=== PATIENT | male | born 1975 | race Two or more races ===

== ENCOUNTER 2020-02-29 01:13 | Inpatient (IN) | payer MEDICAID, OTHER ==
[~2020-02-29] VITALS: Ht 170.2 cm; Wt 86.2 kg
[2020-02-29] MEDS ORDERED: DEXAMETHASONE 4MG/ML 1ML VIAL IV ONE (01:30)
[2020-02-29 02:03] LABS: BASOPHILS % 0.2 % (0.0-2.0); HEMATOCRIT. 41.6 % (42.0-52.0); HEMOGLOBIN. 13.9 g/dL (14.0-18.0); LYMPHOCYTES % 8.4 % (20.0-50.0); MEAN CORPUSCULAR HEMOGLOBIN 25.6 pg (28.0-32.0); MEAN CORPUSCULAR VOLUME 76.5 fL (80.0-94.0); MEAN PLATELET VOLUME 7.3 fl (7.4-10.4); MONOCYTES % 2.9 % (2.0-8.0); NEUTROPHILS % 88.5 % (40.0-76.0); PLATELET 330 x1000/uL (130-400); RED BLOOD CELL COUNT 5.43 mill/uL (4.7-6.1); RED CELL DISTRIBUTION WIDTH 14.6 % (11.6-14.6)
[2020-02-29 02:04] LABS: CHLORIDE 106 mEq/L (98-107)
[2020-02-29 02:10] LABS: ETHANOL BLOOD < 10 mg/dL
[2020-02-29] MEDS ORDERED: AZITHROMYCIN 500 MG in DEXT 5% WATER 250 ML IV NR (02:30)
[2020-02-29] MEDS ORDERED: SODIUM CHLORIDE 0.9% 1,000 ML IV NR (03:15)
[2020-02-29] MEDS ORDERED: ENOXAPARIN 100MG/ML SYR SUBCUT NR (03:30)
[2020-02-29] MEDS ORDERED: KETOROLAC 15MG/ML VIAL IV ONE (04:00)
[2020-02-29] MEDS ORDERED: CEFTRIAXONE 1 G PREMIX 50 ML IV NR (04:00)
[2020-02-29 06:24] LABS: *BARBITURATES SCREEN URINE NEGATIVE (NEGATIVE); *BENZODIAZEPINES SCREEN URINE NEGATIVE (NEGATIVE); *COCAINE SCREEN URINE NEGATIVE (NEGATIVE)
[2020-02-29 06:25] LABS: *AMPHETAMINES SCREEN URINE NEGATIVE (NEGATIVE); CANNABINOID URINE SCREEN NEGATIVE (NEGATIVE); METHADONE URINE SCREEN NEGATIVE (NEGATIVE); OPIATES URINE SCREEN NEGATIVE (NEGATIVE); PHENCYCLIDINE URINE SCREEN NEGATIVE (NEGATIVE)
[2020-02-29] MEDS ORDERED: NITROGLYCERIN 0.4MG TABLET SL SL PRN (07:15)
[2020-02-29] MEDS ORDERED: MAGNESIUM/ALUMINUM HYDROXIDE/SIMETHICONE 30ML UDC PO PRN (07:15)
[2020-02-29] MEDS ORDERED: ACETAMINOPHEN 325MG TABLET PO PRN (07:15)
[2020-02-29] MEDS ORDERED: CLONIDINE 0.1MG TABLET PO PRN (07:15)
[2020-02-29] MEDS ORDERED: DEXTROSE 50% WATER 50ML SYRINGE IV PRN (07:15)
[2020-02-29] MEDS ORDERED: ZOLPIDEM TARTRATE 5MG TABLET PO PRN ×2 (07:15)
[2020-02-29] MEDS ORDERED: ONDANSETRON HCL 4MG/2ML INJ IV PRN (07:15)
[2020-02-29] MEDS ORDERED: DOCUSATE SODIUM 100MG CAPSULE PO PRN (07:15)
[2020-02-29] MEDS ORDERED: KETOROLAC 15MG/ML VIAL IV PRN (07:15)
[2020-02-29 08:01] LABS: FOLIC ACID (FOLATE) SERUM 7.2 ng/mL (>5.38)
[2020-02-29] MEDS: INSULIN LISPRO 100 UNITS/ML SUBCUT SCH ×4 (08:20→21:00)
[2020-02-29] MEDS: FAMOTIDINE 20MG TABLET PO SCH ×2 (09:00→21:00)
[2020-02-29] MEDS: CHOLECALCIFEROL (D3) 1000 UNIT TABLET PO SCH (09:00)
[2020-02-29] MEDS: BLOOD SUGAR DIAGNOSTIC STRIP TEST SCH ×4 (09:00→21:00)
[2020-02-29] MEDS: DEXAMETHASONE 10 MG/ML VIAL IV SCH (09:00)
[2020-02-29] MEDS: ZINC SULFATE 220 MG ( 50 ) CAPSULE PO SCH (09:00)
[2020-02-29] MEDS: ASCORBIC ACID 500 MG TABLET PO SCH ×2 (09:00→21:00)
[2020-02-29] MEDS ORDERED: INSULIN GLARGINE UD 100 UNITS/ML SYR SUBCUT SCH (10:00)
[2020-02-29 12:24] LABS: BG BASE EXCESS -3.3 mmol/L (-2.0-2.0); BG DEOXYHEMOGLOBIN 6.1 % (0.0-5.0); BG FRACTION INSPIRED OXYGEN 100; BG HCO3 ACT 21.2 mmol/L (22.0-26.0); BG METHEMOGLOBIN 0.1 % (0.0-1.5); BG OXYGEN SATURATION 93.8 % (92.0-98.5); BG OXYHEMOGLOBIN 92.8 % (94.0-97.0); BG PCO2 36.7 mmHg (35.0-45.0); BG PO2 71.5 mmHg (75.0-100.0); BG SAMPLE SITE RIGHT RADIAL; BG TOTAL HEMOGLOBIN 14.9 g/dL (12.0-18.0); BG VENT MODE MASK - NRB
[2020-02-29] MEDS: ENOXAPARIN 30MG/0.3ML SYR SUBCUT SCH (21:00)
[2020-02-29] MEDS: GUAIFENESIN 200MG/10ML SUGAR FREE UDC PO PRN (21:40)
[2020-02-29 23:34] LABS: CREATINE KINASE 65 IU/L (39-308)
[2020-02-29 23:35] LABS: CREATINE KINASE MB FRACTION 1.1 ng/mL (0.5-3.6)
[2020-03-01] MEDS ORDERED: AZITHROMYCIN 500 MG in DEXT 5% WATER 250 ML IV SCH (02:00)
[2020-03-01 03:15] VITALS: BP 141/74
[2020-03-01 04:00] VITALS: BP 134/67
[2020-03-01] MEDS ORDERED: CEFTRIAXONE 1 G PREMIX 50 ML IV SCH (04:00)
[2020-03-01] MEDS: BLOOD SUGAR DIAGNOSTIC STRIP TEST SCH ×4 (06:40→20:25)
[2020-03-01 08:00] VITALS: BP 121/75
[2020-03-01] MEDS: DEXAMETHASONE 10 MG/ML VIAL IV SCH (08:02)
[2020-03-01] MEDS: FAMOTIDINE 20MG TABLET PO SCH ×2 (08:02→20:24)
[2020-03-01] MEDS: INSULIN LISPRO 100 UNITS/ML SUBCUT SCH ×4 (08:02→21:17)
[2020-03-01] MEDS: ZINC SULFATE 220 MG ( 50 ) CAPSULE PO SCH (08:02)
[2020-03-01] MEDS: ENOXAPARIN 30MG/0.3ML SYR SUBCUT SCH ×2 (08:02→20:25)
[2020-03-01] MEDS: ASCORBIC ACID 500 MG TABLET PO SCH ×2 (08:02→20:25)
[2020-03-01] MEDS: CHOLECALCIFEROL (D3) 1000 UNIT TABLET PO SCH (08:02)
[2020-03-01 08:20] LABS: HEMATOCRIT. 40.7 % (42.0-52.0); HEMOGLOBIN. 13.8 g/dL (14.0-18.0); MEAN CORPUSCULAR HEMOGLOBIN 25.8 pg (28.0-32.0); MEAN CORPUSCULAR VOLUME 76.2 fL (80.0-94.0); MEAN PLATELET VOLUME 7.6 fl (7.4-10.4); PLATELET 357 x1000/uL (130-400); RED BLOOD CELL COUNT 5.34 mill/uL (4.7-6.1); RED CELL DISTRIBUTION WIDTH 14.5 % (11.6-14.6)
[2020-03-01 09:03] LABS: CHLORIDE 107 mEq/L (98-107)
[2020-03-01 09:09] LABS: PHOSPHORUS 3.2 mg/dL (2.5-4.9)
[2020-03-01] MEDS ORDERED: FUROSEMIDE 40MG/4ML VIAL IVP NR (11:00)
[2020-03-01 11:29] LABS: NUCLEATED RED BLOOD CELLS 1 /100 WBC; PLATELET ESTIMATE NORMAL
[2020-03-01 12:00] VITALS: BP 144/87
[2020-03-01] MEDS: AZITHROMYCIN 500 MG in DEXT 5% WATER 250 ML IV SCH (12:37)
[2020-03-01] MEDS: CEFTRIAXONE 1,000 MG in DEXTROSE 5% WATER 50 ML IV SCH (12:37)
[2020-03-01] MEDS: INSULIN GLARGINE UD 100 UNITS/ML SYR SUBCUT SCH (12:42)
[2020-03-01 16:00] VITALS: BP 112/67
[2020-03-01 20:00] VITALS: BP 127/80
[2020-03-02] VITALS: BP 109/58
[2020-03-02] MEDS: ACETAMINOPHEN 325MG TABLET PO PRN ×2 (02:30→23:54)
[2020-03-02 04:00] VITALS: BP 115/87
[2020-03-02] MEDS: BLOOD SUGAR DIAGNOSTIC STRIP TEST SCH ×4 (07:10→20:56)
[2020-03-02] MEDS: INSULIN LISPRO 100 UNITS/ML SUBCUT SCH ×4 (07:10→23:55)
[2020-03-02 08:00] VITALS: BP 125/79
[2020-03-02] MEDS: DEXAMETHASONE 10 MG/ML VIAL IV SCH (09:00)
[2020-03-02] MEDS: CEFTRIAXONE 1,000 MG in DEXTROSE 5% WATER 50 ML IV SCH (10:01)
[2020-03-02] MEDS: AZITHROMYCIN 500 MG in DEXT 5% WATER 250 ML IV SCH (10:02)
[2020-03-02] MEDS: ZINC SULFATE 220 MG ( 50 ) CAPSULE PO SCH (10:03)
[2020-03-02] MEDS: ASCORBIC ACID 500 MG TABLET PO SCH ×2 (10:03→23:54)
[2020-03-02] MEDS: FAMOTIDINE 20MG TABLET PO SCH ×2 (10:03→23:54)
[2020-03-02] MEDS: CHOLECALCIFEROL (D3) 1000 UNIT TABLET PO SCH (10:04)
[2020-03-02] MEDS: ENOXAPARIN 30MG/0.3ML SYR SUBCUT SCH ×2 (10:04→23:54)
[2020-03-02] MEDS: INSULIN GLARGINE UD 100 UNITS/ML SYR SUBCUT SCH (10:28)
[2020-03-02 12:00] VITALS: BP 108/65
[2020-03-02 16:00] VITALS: BP 123/63
[2020-03-02 20:00] VITALS: BP 93/75
[2020-03-03] VITALS: BP 105/66
[2020-03-03] MEDS: GUAIFENESIN 200MG/10ML SUGAR FREE UDC PO PRN (00:10)
[2020-03-03 04:00] VITALS: BP 113/62
[2020-03-03] MEDS: INSULIN LISPRO 100 UNITS/ML SUBCUT SCH ×4 (07:10→22:13)
[2020-03-03] MEDS: BLOOD SUGAR DIAGNOSTIC STRIP TEST SCH ×4 (07:37→21:00)
[2020-03-03] MEDS: CEFTRIAXONE 1,000 MG in DEXTROSE 5% WATER 50 ML IV SCH (08:45)
[2020-03-03] MEDS: ASCORBIC ACID 500 MG TABLET PO SCH ×2 (08:45→22:10)
[2020-03-03] MEDS: AZITHROMYCIN 500 MG in DEXT 5% WATER 250 ML IV SCH (08:45)
[2020-03-03] MEDS: CHOLECALCIFEROL (D3) 1000 UNIT TABLET PO SCH (08:45)
[2020-03-03] MEDS: ZINC SULFATE 220 MG ( 50 ) CAPSULE PO SCH (08:45)
[2020-03-03] MEDS: FAMOTIDINE 20MG TABLET PO SCH ×2 (08:45→22:10)
[2020-03-03] MEDS: DEXAMETHASONE 10 MG/ML VIAL IV SCH (08:46)
[2020-03-03] MEDS: ENOXAPARIN 30MG/0.3ML SYR SUBCUT SCH ×2 (08:46→22:11)
[2020-03-03] MEDS: INSULIN GLARGINE UD 100 UNITS/ML SYR SUBCUT SCH (10:00)
[2020-03-03 20:00] VITALS: BP 126/71
[2020-03-03] MEDS: ALBUTEROL 6.7GM HFA INHALER ORI SCH (21:00)
[2020-03-04] VITALS: BP 108/62
[2020-03-04] MEDS: ALBUTEROL 6.7GM HFA INHALER ORI SCH ×4 (03:51→21:04)
[2020-03-04 04:00] VITALS: BP 95/47
[2020-03-04] MEDS: BLOOD SUGAR DIAGNOSTIC STRIP TEST SCH ×4 (06:31→21:04)
[2020-03-04] MEDS: INSULIN LISPRO 100 UNITS/ML SUBCUT SCH ×4 (06:31→23:52)
[2020-03-04 08:00] VITALS: BP 102/51
[2020-03-04] MEDS: CEFTRIAXONE 1,000 MG in DEXTROSE 5% WATER 50 ML IV SCH (08:43)
[2020-03-04] MEDS: ZINC SULFATE 220 MG ( 50 ) CAPSULE PO SCH (08:44)
[2020-03-04] MEDS: CHOLECALCIFEROL (D3) 1000 UNIT TABLET PO SCH (08:44)
[2020-03-04] MEDS: FAMOTIDINE 20MG TABLET PO SCH ×2 (08:44→21:03)
[2020-03-04] MEDS: AZITHROMYCIN 500 MG in DEXT 5% WATER 250 ML IV SCH (08:44)
[2020-03-04] MEDS: DEXAMETHASONE 10 MG/ML VIAL IV SCH (08:44)
[2020-03-04] MEDS: ASCORBIC ACID 500 MG TABLET PO SCH ×2 (08:44→21:03)
[2020-03-04] MEDS: ENOXAPARIN 30MG/0.3ML SYR SUBCUT SCH ×2 (08:52→21:02)
[2020-03-04] MEDS: ALBUTEROL 6.7GM HFA INHALER ORI PRN (08:52)
[2020-03-04] MEDS: INSULIN GLARGINE UD 100 UNITS/ML SYR SUBCUT SCH (10:41)
[2020-03-04 12:00] VITALS: BP 120/63
[2020-03-04 16:00] VITALS: BP 115/61
[2020-03-04 20:00] VITALS: BP 137/66
[2020-03-05] VITALS: BP 126/61
[2020-03-05] MEDS: ALBUTEROL 6.7GM HFA INHALER ORI SCH ×4 (03:03→21:00)
[2020-03-05 04:00] VITALS: BP 99/63
[2020-03-05] MEDS: BLOOD SUGAR DIAGNOSTIC STRIP TEST SCH ×4 (06:56→20:58)
[2020-03-05 08:00] VITALS: BP 116/61
[2020-03-05] MEDS: CEFTRIAXONE 1,000 MG in DEXTROSE 5% WATER 50 ML IV SCH (08:25)
[2020-03-05] MEDS: INSULIN LISPRO 100 UNITS/ML SUBCUT SCH ×4 (08:25→20:58)
[2020-03-05] MEDS: AZITHROMYCIN 500 MG in DEXT 5% WATER 250 ML IV SCH (08:27)
[2020-03-05] MEDS: ASCORBIC ACID 500 MG TABLET PO SCH ×2 (08:27→20:58)
[2020-03-05] MEDS: FAMOTIDINE 20MG TABLET PO SCH ×2 (08:27→20:58)
[2020-03-05] MEDS: CHOLECALCIFEROL (D3) 1000 UNIT TABLET PO SCH (08:27)
[2020-03-05] MEDS: ZINC SULFATE 220 MG ( 50 ) CAPSULE PO SCH (08:27)
[2020-03-05] MEDS: ENOXAPARIN 30MG/0.3ML SYR SUBCUT SCH ×2 (08:28→20:59)
[2020-03-05] MEDS: DEXAMETHASONE 10 MG/ML VIAL IV SCH (08:28)
[2020-03-05] MEDS: INSULIN GLARGINE UD 100 UNITS/ML SYR SUBCUT SCH (09:27)
[2020-03-05 12:00] VITALS: BP 113/54
[2020-03-05 16:00] VITALS: BP 114/65
[2020-03-05 20:00] VITALS: BP 109/61
[2020-03-06 00:48] VITALS: BP 98/55
[2020-03-06 04:00] VITALS: BP 93/36
[2020-03-06] MEDS: BLOOD SUGAR DIAGNOSTIC STRIP TEST SCH ×4 (06:02→21:48)
[2020-03-06] MEDS: ALBUTEROL 6.7GM HFA INHALER ORI SCH ×4 (06:03→21:49)
[2020-03-06] MEDS: GUAIFENESIN 200MG/10ML SUGAR FREE UDC PO PRN ×2 (06:48→21:47)
[2020-03-06] MEDS: INSULIN LISPRO 100 UNITS/ML SUBCUT SCH ×4 (07:10→21:48)
[2020-03-06 08:00] VITALS: BP 118/60
[2020-03-06] MEDS: CHOLECALCIFEROL (D3) 1000 UNIT TABLET PO SCH (08:00)
[2020-03-06] MEDS: FAMOTIDINE 20MG TABLET PO SCH ×2 (08:00→21:47)
[2020-03-06] MEDS: ASCORBIC ACID 500 MG TABLET PO SCH ×2 (08:00→21:47)
[2020-03-06] MEDS: ZINC SULFATE 220 MG ( 50 ) CAPSULE PO SCH (08:00)
[2020-03-06] MEDS: DEXAMETHASONE 10 MG/ML VIAL IV SCH (08:00)
[2020-03-06] MEDS: ENOXAPARIN 30MG/0.3ML SYR SUBCUT SCH ×2 (08:01→21:48)
[2020-03-06 12:00] VITALS: BP 110/58
[2020-03-06 16:00] VITALS: BP 104/62
[2020-03-06 20:00] VITALS: BP 113/61
[2020-03-07] VITALS: BP 117/62
[2020-03-07] MEDS: ALBUTEROL 6.7GM HFA INHALER ORI SCH ×4 (03:13→21:59)
[2020-03-07 04:00] VITALS: BP 129/67
[2020-03-07] MEDS: BLOOD SUGAR DIAGNOSTIC STRIP TEST SCH ×4 (06:46→21:05)
[2020-03-07] MEDS: INSULIN LISPRO 100 UNITS/ML SUBCUT SCH ×4 (07:10→21:00)
[2020-03-07 08:00] VITALS: BP 114/64
[2020-03-07] MEDS: ZINC SULFATE 220 MG ( 50 ) CAPSULE PO SCH (08:34)
[2020-03-07] MEDS: CHOLECALCIFEROL (D3) 1000 UNIT TABLET PO SCH (08:34)
[2020-03-07] MEDS: ASCORBIC ACID 500 MG TABLET PO SCH ×2 (08:34→21:03)
[2020-03-07] MEDS: FAMOTIDINE 20MG TABLET PO SCH ×2 (08:34→21:03)
[2020-03-07] MEDS: DEXAMETHASONE 10 MG/ML VIAL IV SCH (08:38)
[2020-03-07] MEDS: ENOXAPARIN 30MG/0.3ML SYR SUBCUT SCH ×2 (08:39→21:05)
[2020-03-07 12:00] VITALS: BP 123/66
[2020-03-07] MEDS: INSULIN GLARGINE UD 100 UNITS/ML SYR SUBCUT SCH (12:06)
[2020-03-07 16:00] VITALS: BP 113/75
[2020-03-07 20:00] VITALS: BP 99/57
[2020-03-07] MEDS: GUAIFENESIN 200MG/10ML SUGAR FREE UDC PO PRN (22:08)
[2020-03-08] VITALS: BP 100/62
[2020-03-08] MEDS: ALBUTEROL 6.7GM HFA INHALER ORI SCH ×3 (02:52→13:10)
[2020-03-08 04:00] VITALS: BP 98/60
[2020-03-08 06:12] LABS: HEMATOCRIT. 42.1 % (42.0-52.0); HEMOGLOBIN. 14.1 g/dL (14.0-18.0); MEAN CORPUSCULAR HEMOGLOBIN 25.8 pg (28.0-32.0); MEAN CORPUSCULAR VOLUME 77.1 fL (80.0-94.0); MEAN PLATELET VOLUME 7.9 fl (7.4-10.4); PLATELET 275 x1000/uL (130-400); RED BLOOD CELL COUNT 5.46 mill/uL (4.7-6.1); RED CELL DISTRIBUTION WIDTH 14.7 % (11.6-14.6)
[2020-03-08] MEDS: BLOOD SUGAR DIAGNOSTIC STRIP TEST SCH ×4 (06:29→21:00)
[2020-03-08 06:53] LABS: CHLORIDE 105 mEq/L (98-107)
[2020-03-08] MEDS: INSULIN LISPRO 100 UNITS/ML SUBCUT SCH ×4 (07:10→21:00)
[2020-03-08] MEDS: ASCORBIC ACID 500 MG TABLET PO SCH (07:50)
[2020-03-08] MEDS: ZINC SULFATE 220 MG ( 50 ) CAPSULE PO SCH (07:50)
[2020-03-08] MEDS: FAMOTIDINE 20MG TABLET PO SCH ×2 (07:50→21:00)
[2020-03-08] MEDS: ENOXAPARIN 30MG/0.3ML SYR SUBCUT SCH (07:51)
[2020-03-08] MEDS: CHOLECALCIFEROL (D3) 1000 UNIT TABLET PO SCH (07:51)
[2020-03-08] MEDS: DEXAMETHASONE 10 MG/ML VIAL IV SCH (07:51)
[2020-03-08 08:00] VITALS: BP 134/64
[2020-03-08] MEDS: INSULIN GLARGINE UD 100 UNITS/ML SYR SUBCUT SCH (11:05)
[2020-03-08 11:35] VITALS: BP 136/62
[2020-03-08 14:09] LABS: PLATELET ESTIMATE NORMAL
[2020-03-08 15:57] VITALS: BP 126/60
[2020-03-08 20:00] VITALS: BP 117/74
[2020-03-09] VITALS: BP 149/70
[2020-03-09] MEDS: ASCORBIC ACID 500 MG TABLET PO SCH ×3 (00:32→20:10)
[2020-03-09] MEDS: ENOXAPARIN 30MG/0.3ML SYR SUBCUT SCH ×3 (00:32→20:11)
[2020-03-09] MEDS: ALBUTEROL 6.7GM HFA INHALER ORI SCH ×5 (03:00→17:11)
[2020-03-09 04:00] VITALS: BP 106/49
[2020-03-09] MEDS: BLOOD SUGAR DIAGNOSTIC STRIP TEST SCH ×4 (06:40→20:11)
[2020-03-09] MEDS: INSULIN LISPRO 100 UNITS/ML SUBCUT SCH ×4 (07:10→21:00)
[2020-03-09 08:00] VITALS: BP 107/68
[2020-03-09] MEDS: DEXAMETHASONE 10 MG/ML VIAL IV SCH (09:04)
[2020-03-09] MEDS: CHOLECALCIFEROL (D3) 1000 UNIT TABLET PO SCH (09:05)
[2020-03-09] MEDS: FAMOTIDINE 20MG TABLET PO SCH ×2 (09:05→20:10)
[2020-03-09] MEDS: ZINC SULFATE 220 MG ( 50 ) CAPSULE PO SCH (09:05)
[2020-03-09] MEDS: INSULIN GLARGINE UD 100 UNITS/ML SYR SUBCUT SCH (09:38)
[2020-03-09 12:00] VITALS: BP 113/63
[2020-03-09 16:00] VITALS: BP 146/83
[2020-03-09] MEDS: ALBUTEROL 6.7GM HFA INHALER ORI PRN (17:10)
[2020-03-09 20:00] VITALS: BP 143/93
[2020-03-10] VITALS: BP 142/68
[2020-03-10 04:00] VITALS: BP 160/76
[2020-03-10] MEDS: BLOOD SUGAR DIAGNOSTIC STRIP TEST SCH ×4 (06:40→21:07)
[2020-03-10] MEDS: INSULIN LISPRO 100 UNITS/ML SUBCUT SCH ×4 (07:10→21:19)
[2020-03-10 08:00] VITALS: BP 138/63
[2020-03-10] MEDS: ALBUTEROL 6.7GM HFA INHALER ORI SCH ×4 (09:19→21:16)
[2020-03-10] MEDS: FAMOTIDINE 20MG TABLET PO SCH ×2 (09:21→21:17)
[2020-03-10] MEDS: ENOXAPARIN 30MG/0.3ML SYR SUBCUT SCH ×2 (09:21→21:16)
[2020-03-10] MEDS: ZINC SULFATE 220 MG ( 50 ) CAPSULE PO SCH (09:21)
[2020-03-10] MEDS: CHOLECALCIFEROL (D3) 1000 UNIT TABLET PO SCH (09:21)
[2020-03-10] MEDS: ASCORBIC ACID 500 MG TABLET PO SCH ×2 (09:21→21:16)
[2020-03-10] MEDS: DEXAMETHASONE 10 MG/ML VIAL IV SCH (09:21)
[2020-03-10] MEDS: INSULIN GLARGINE UD 100 UNITS/ML SYR SUBCUT SCH (09:26)
[2020-03-10 12:00] VITALS: BP 128/83
[2020-03-10 16:00] VITALS: BP 137/93
[2020-03-10 20:00] VITALS: BP 132/85
[2020-03-10] MEDS: GUAIFENESIN 200MG/10ML SUGAR FREE UDC PO PRN (21:16)
[2020-03-11] VITALS: BP 125/87
[2020-03-11] MEDS: ALBUTEROL 6.7GM HFA INHALER ORI SCH ×3 (01:20→22:00)
[2020-03-11 04:00] VITALS: BP 116/81
[2020-03-11] MEDS: BLOOD SUGAR DIAGNOSTIC STRIP TEST SCH ×4 (06:01→22:01)
[2020-03-11] MEDS: INSULIN LISPRO 100 UNITS/ML SUBCUT SCH ×4 (06:13→22:26)
[2020-03-11 08:00] VITALS: BP 128/72
[2020-03-11] MEDS: FAMOTIDINE 20MG TABLET PO SCH ×2 (09:11→22:00)
[2020-03-11] MEDS: CHOLECALCIFEROL (D3) 1000 UNIT TABLET PO SCH (09:11)
[2020-03-11] MEDS: ENOXAPARIN 30MG/0.3ML SYR SUBCUT SCH ×2 (09:11→22:05)
[2020-03-11] MEDS: ZINC SULFATE 220 MG ( 50 ) CAPSULE PO SCH (09:11)
[2020-03-11] MEDS: ASCORBIC ACID 500 MG TABLET PO SCH ×2 (09:11→22:00)
[2020-03-11] MEDS: INSULIN GLARGINE UD 100 UNITS/ML SYR SUBCUT SCH (10:22)
[2020-03-11 12:00] VITALS: BP 141/82
[2020-03-11 16:00] VITALS: BP 157/85
[2020-03-11 20:00] VITALS: BP 127/92
[2020-03-12] VITALS: BP 132/82
[2020-03-12] MEDS: ALBUTEROL 6.7GM HFA INHALER ORI SCH ×5 (02:14→21:52)
[2020-03-12 04:00] VITALS: BP 142/85
[2020-03-12] MEDS: BLOOD SUGAR DIAGNOSTIC STRIP TEST SCH ×4 (06:00→21:52)
[2020-03-12] MEDS: INSULIN LISPRO 100 UNITS/ML SUBCUT SCH ×4 (06:00→22:00)
[2020-03-12 08:00] VITALS: BP 128/78
[2020-03-12] MEDS: ZINC SULFATE 220 MG ( 50 ) CAPSULE PO SCH (09:18)
[2020-03-12] MEDS: ENOXAPARIN 30MG/0.3ML SYR SUBCUT SCH ×2 (09:18→22:00)
[2020-03-12] MEDS: ASCORBIC ACID 500 MG TABLET PO SCH ×2 (09:18→21:59)
[2020-03-12] MEDS: CHOLECALCIFEROL (D3) 1000 UNIT TABLET PO SCH (09:18)
[2020-03-12] MEDS: FAMOTIDINE 20MG TABLET PO SCH ×2 (09:18→21:59)
[2020-03-12] MEDS: INSULIN GLARGINE UD 100 UNITS/ML SYR SUBCUT SCH (10:37)
[2020-03-12 12:00] VITALS: BP 130/79
[2020-03-12 12:55] LABS: BG BASE EXCESS 1.6 mmol/L (-2.0-2.0); BG CARBOXYHEMOGLOBIN 0.5 % (0.5-1.5); BG HCO3 ACT 27.4 mmol/L (22.0-26.0); BG METHEMOGLOBIN 0.2 % (0.0-1.5); BG OXYGEN SATURATION 89.9 % (92.0-98.5); BG OXYHEMOGLOBIN 89.3 % (94.0-97.0); BG PCO2 47.2 mmHg (35.0-45.0); BG PH 7.382 (7.350-7.450); BG PO2 58.7 mmHg (75.0-100.0); BG SAMPLE SITE RIGHT RADIAL; BG TOTAL HEMOGLOBIN 16.2 g/dL (12.0-18.0); BG VENT MODE MASK - CPAP
[2020-03-12 16:00] VITALS: BP 154/96
[2020-03-12 20:00] VITALS: BP 148/95
[2020-03-13] VITALS: BP 135/79
[2020-03-13 04:00] VITALS: BP 146/84
[2020-03-13] MEDS: ALBUTEROL 6.7GM HFA INHALER ORI SCH ×4 (04:23→21:33)
[2020-03-13] MEDS: BLOOD SUGAR DIAGNOSTIC STRIP TEST SCH ×3 (06:16→21:33)
[2020-03-13 08:00] VITALS: BP 138/81
[2020-03-13] MEDS: ASCORBIC ACID 500 MG TABLET PO SCH ×2 (09:27→21:34)
[2020-03-13] MEDS: ENOXAPARIN 30MG/0.3ML SYR SUBCUT SCH ×2 (09:27→21:36)
[2020-03-13] MEDS: FAMOTIDINE 20MG TABLET PO SCH ×2 (09:27→21:34)
[2020-03-13] MEDS: CHOLECALCIFEROL (D3) 1000 UNIT TABLET PO SCH (09:27)
[2020-03-13] MEDS: ZINC SULFATE 220 MG ( 50 ) CAPSULE PO SCH (09:27)
[2020-03-13] MEDS: INSULIN LISPRO 100 UNITS/ML SUBCUT SCH ×3 (09:39→22:20)
[2020-03-13] MEDS: INSULIN GLARGINE UD 100 UNITS/ML SYR SUBCUT SCH (09:58)
[2020-03-13 12:00] VITALS: BP 130/86
[2020-03-13 16:00] VITALS: BP 129/82
[2020-03-13 20:00] VITALS: BP 151/68
[2020-03-14] VITALS: BP 134/75
[2020-03-14 04:00] VITALS: BP 163/85
[2020-03-14] MEDS: ALBUTEROL 6.7GM HFA INHALER ORI SCH ×4 (04:20→21:59)
[2020-03-14] MEDS: INSULIN LISPRO 100 UNITS/ML SUBCUT SCH ×4 (06:16→22:47)
[2020-03-14] MEDS: BLOOD SUGAR DIAGNOSTIC STRIP TEST SCH ×4 (06:16→21:59)
[2020-03-14 08:14] VITALS: BP 136/80
[2020-03-14] MEDS: METHYLPREDNISOLONE SOD SUCC 40 MG/ML VIAL IV SCH ×3 (10:35→21:59)
[2020-03-14] MEDS: ENOXAPARIN 30MG/0.3ML SYR SUBCUT SCH ×2 (10:35→22:00)
[2020-03-14] MEDS: ASCORBIC ACID 500 MG TABLET PO SCH ×2 (10:35→21:59)
[2020-03-14] MEDS: FAMOTIDINE 20MG TABLET PO SCH ×2 (10:35→21:59)
[2020-03-14] MEDS: CHOLECALCIFEROL (D3) 1000 UNIT TABLET PO SCH (10:35)
[2020-03-14] MEDS: ZINC SULFATE 220 MG ( 50 ) CAPSULE PO SCH (10:35)
[2020-03-14] MEDS: INSULIN GLARGINE UD 100 UNITS/ML SYR SUBCUT SCH (10:37)
[2020-03-14 12:00] VITALS: BP 142/86
[2020-03-14 16:00] VITALS: BP 147/97
[2020-03-14 20:00] VITALS: BP 178/90
[2020-03-15] VITALS: BP 183/92
[2020-03-15] MEDS: ACETAMINOPHEN 325MG TABLET PO PRN (02:08)
[2020-03-15] MEDS: ALBUTEROL 6.7GM HFA INHALER ORI SCH ×4 (03:00→09:40)
[2020-03-15 04:00] VITALS: BP 113/68
[2020-03-15] MEDS: BLOOD SUGAR DIAGNOSTIC STRIP TEST SCH ×4 (06:26→21:00)
[2020-03-15] MEDS: METHYLPREDNISOLONE SOD SUCC 40 MG/ML VIAL IV SCH ×3 (06:40→22:27)
[2020-03-15] MEDS: INSULIN LISPRO 100 UNITS/ML SUBCUT SCH ×4 (07:10→23:19)
[2020-03-15 08:00] VITALS: BP 141/92
[2020-03-15] MEDS: ASCORBIC ACID 500 MG TABLET PO SCH ×2 (08:30→22:27)
[2020-03-15] MEDS: FAMOTIDINE 20MG TABLET PO SCH ×2 (08:30→23:18)
[2020-03-15] MEDS: CHOLECALCIFEROL (D3) 1000 UNIT TABLET PO SCH (08:30)
[2020-03-15] MEDS: ZINC SULFATE 220 MG ( 50 ) CAPSULE PO SCH (08:30)
[2020-03-15] MEDS: ENOXAPARIN 30MG/0.3ML SYR SUBCUT SCH ×2 (08:31→23:18)
[2020-03-15] MEDS: INSULIN GLARGINE UD 100 UNITS/ML SYR SUBCUT SCH (10:27)
[2020-03-15 12:00] VITALS: BP 147/95
[2020-03-15] MEDS: ALBUTEROL 6.7GM HFA INHALER ORI PRN (14:06)
[2020-03-15 16:00] VITALS: BP 138/90
[2020-03-15] MEDS: GUAIFENESIN 200MG/10ML SUGAR FREE UDC PO PRN ×2 (16:37→23:18)
[2020-03-15 20:00] VITALS: BP 144/80
[2020-03-16 00:01] VITALS: BP 130/70
[2020-03-16 04:00] VITALS: BP 129/72
[2020-03-16] MEDS: METHYLPREDNISOLONE SOD SUCC 40 MG/ML VIAL IV SCH ×3 (05:27→21:38)
[2020-03-16] MEDS: BLOOD SUGAR DIAGNOSTIC STRIP TEST SCH ×4 (05:28→21:38)
[2020-03-16] MEDS: ALBUTEROL 6.7GM HFA INHALER ORI SCH ×4 (05:28→21:37)
[2020-03-16] MEDS: INSULIN LISPRO 100 UNITS/ML SUBCUT SCH ×4 (07:10→21:38)
[2020-03-16 07:34] LABS: CHLORIDE 99 mEq/L (98-107)
[2020-03-16 07:37] LABS: HEMATOCRIT 44.3 % (42.0-52.0); HEMOGLOBIN 14.5 g/dL (14.0-18.0); MEAN CORPUSCULAR HEMOGLOBIN 25.8 pg (28.0-32.0); MEAN CORPUSCULAR VOLUME 78.9 fL (80.0-94.0); PLATELET 379 x1000/uL (130-400); RED BLOOD CELL COUNT 5.62 mill/uL (4.7-6.1); RED CELL DISTRIBUTION WIDTH 14.9 % (11.6-14.6)
[2020-03-16 08:00] VITALS: BP 131/83
[2020-03-16] MEDS: ZINC SULFATE 220 MG ( 50 ) CAPSULE PO SCH (09:05)
[2020-03-16] MEDS: ASCORBIC ACID 500 MG TABLET PO SCH ×2 (09:05→21:37)
[2020-03-16] MEDS: FAMOTIDINE 20MG TABLET PO SCH ×2 (09:05→21:37)
[2020-03-16] MEDS: CHOLECALCIFEROL (D3) 1000 UNIT TABLET PO SCH (09:06)
[2020-03-16] MEDS: ENOXAPARIN 30MG/0.3ML SYR SUBCUT SCH ×2 (09:06→21:37)
[2020-03-16] MEDS: INSULIN GLARGINE UD 100 UNITS/ML SYR SUBCUT SCH (10:21)
[2020-03-16 12:00] VITALS: BP 147/91
[2020-03-16 16:00] VITALS: BP 158/92
[2020-03-16 20:00] VITALS: BP 140/93
[2020-03-16] MEDS: GUAIFENESIN 200MG/10ML SUGAR FREE UDC PO PRN (22:45)
[2020-03-17] VITALS: BP 132/88
[2020-03-17 04:00] VITALS: BP 125/73
[2020-03-17] MEDS: ALBUTEROL 6.7GM HFA INHALER ORI SCH ×4 (04:16→17:16)
[2020-03-17] MEDS: METHYLPREDNISOLONE SOD SUCC 40 MG/ML VIAL IV SCH ×3 (05:27→21:51)
[2020-03-17] MEDS: INSULIN LISPRO 100 UNITS/ML SUBCUT SCH ×4 (05:53→22:12)
[2020-03-17] MEDS: BLOOD SUGAR DIAGNOSTIC STRIP TEST SCH ×4 (05:53→21:51)
[2020-03-17 08:00] VITALS: BP 130/72
[2020-03-17] MEDS: FAMOTIDINE 20MG TABLET PO SCH ×2 (08:24→21:50)
[2020-03-17] MEDS: ZINC SULFATE 220 MG ( 50 ) CAPSULE PO SCH (08:24)
[2020-03-17] MEDS: CHOLECALCIFEROL (D3) 1000 UNIT TABLET PO SCH (08:24)
[2020-03-17] MEDS: ASCORBIC ACID 500 MG TABLET PO SCH ×2 (08:24→21:51)
[2020-03-17] MEDS: ENOXAPARIN 30MG/0.3ML SYR SUBCUT SCH ×2 (08:25→21:51)
[2020-03-17] MEDS: INSULIN GLARGINE UD 100 UNITS/ML SYR SUBCUT SCH (10:20)
[2020-03-17 12:00] VITALS: BP 145/64
[2020-03-17 16:00] VITALS: BP 139/85
[2020-03-17 20:00] VITALS: BP 152/94
[2020-03-18] VITALS: BP 146/87
[2020-03-18] MEDS: ALBUTEROL 6.7GM HFA INHALER ORI SCH ×4 (03:52→21:39)
[2020-03-18 04:00] VITALS: BP 122/78
[2020-03-18] MEDS: INSULIN LISPRO 100 UNITS/ML SUBCUT SCH ×3 (06:10→17:31)
[2020-03-18] MEDS: BLOOD SUGAR DIAGNOSTIC STRIP TEST SCH ×4 (06:10→21:00)
[2020-03-18] MEDS: METHYLPREDNISOLONE SOD SUCC 40 MG/ML VIAL IV SCH ×2 (06:13→14:41)
[2020-03-18 08:00] VITALS: BP 158/88
[2020-03-18] MEDS: CHOLECALCIFEROL (D3) 1000 UNIT TABLET PO SCH (09:20)
[2020-03-18] MEDS: FAMOTIDINE 20MG TABLET PO SCH ×2 (09:20→21:21)
[2020-03-18] MEDS: ASCORBIC ACID 500 MG TABLET PO SCH ×2 (09:21→21:21)
[2020-03-18] MEDS: ZINC SULFATE 220 MG ( 50 ) CAPSULE PO SCH (09:21)
[2020-03-18] MEDS: ENOXAPARIN 30MG/0.3ML SYR SUBCUT SCH (09:22)
[2020-03-18] MEDS: INSULIN GLARGINE UD 100 UNITS/ML SYR SUBCUT SCH (10:46)
[2020-03-18 12:00] VITALS: BP 148/83
[2020-03-18 16:00] VITALS: BP 128/79
[2020-03-18] MEDS: GUAIFENESIN 200MG/10ML SUGAR FREE UDC PO PRN (17:44)
[2020-03-18 20:00] VITALS: BP 150/97
[2020-03-19] VITALS: BP 139/95
[2020-03-19] MEDS: METHYLPREDNISOLONE SOD SUCC 40 MG/ML VIAL IV SCH ×4 (01:38→22:03)
[2020-03-19] MEDS: INSULIN LISPRO 100 UNITS/ML SUBCUT SCH ×5 (01:39→22:05)
[2020-03-19] MEDS: ENOXAPARIN 30MG/0.3ML SYR SUBCUT SCH ×3 (01:41→22:03)
[2020-03-19] MEDS: ALBUTEROL 6.7GM HFA INHALER ORI SCH ×4 (03:01→21:08)
[2020-03-19 04:00] VITALS: BP 151/87
[2020-03-19] MEDS: BLOOD SUGAR DIAGNOSTIC STRIP TEST SCH ×4 (06:40→21:57)
[2020-03-19 08:00] VITALS: BP 123/90
[2020-03-19] MEDS: CHOLECALCIFEROL (D3) 1000 UNIT TABLET PO SCH (09:50)
[2020-03-19] MEDS: ASCORBIC ACID 500 MG TABLET PO SCH ×2 (09:50→22:04)
[2020-03-19] MEDS: ZINC SULFATE 220 MG ( 50 ) CAPSULE PO SCH (09:50)
[2020-03-19] MEDS: INSULIN GLARGINE UD 100 UNITS/ML SYR SUBCUT SCH (11:11)
[2020-03-19 12:00] VITALS: BP 152/95
[2020-03-19] MEDS: FAMOTIDINE 20MG TABLET PO SCH ×2 (12:25→22:04)
[2020-03-19 15:55] VITALS: BP 136/81
[2020-03-19 18:00] LABS: HEPATITIS B SURFACE ANTIGEN NEGATIVE
[2020-03-19 20:36] VITALS: BP 131/65
[2020-03-20] VITALS: BP 136/75
[2020-03-20] MEDS: ALBUTEROL 6.7GM HFA INHALER ORI SCH ×4 (03:10→22:03)
[2020-03-20 04:47] VITALS: BP 135/87
[2020-03-20] MEDS: METHYLPREDNISOLONE SOD SUCC 40 MG/ML VIAL IV SCH ×3 (05:20→23:02)
[2020-03-20] MEDS: BLOOD SUGAR DIAGNOSTIC STRIP TEST SCH ×4 (07:07→22:03)
[2020-03-20 07:55] VITALS: BP 135/86
[2020-03-20] MEDS: ASCORBIC ACID 500 MG TABLET PO SCH ×2 (08:15→22:55)
[2020-03-20] MEDS: CHOLECALCIFEROL (D3) 1000 UNIT TABLET PO SCH (08:15)
[2020-03-20] MEDS: FAMOTIDINE 20MG TABLET PO SCH ×2 (08:16→22:55)
[2020-03-20] MEDS: ZINC SULFATE 220 MG ( 50 ) CAPSULE PO SCH (08:16)
[2020-03-20] MEDS: ENOXAPARIN 30MG/0.3ML SYR SUBCUT SCH ×2 (08:16→22:56)
[2020-03-20] MEDS: INSULIN LISPRO 100 UNITS/ML SUBCUT SCH ×4 (08:17→22:57)
[2020-03-20 12:00] VITALS: BP 156/99
[2020-03-20] MEDS: INSULIN GLARGINE UD 100 UNITS/ML SYR SUBCUT SCH (12:42)
[2020-03-20] MEDS: GUAIFENESIN 200MG/10ML SUGAR FREE UDC PO PRN ×2 (13:30→23:08)
[2020-03-20 16:00] VITALS: BP 138/91
[2020-03-20 20:00] VITALS: BP 152/90
[2020-03-21] VITALS (7 sets, daily range): BP systolic 125–144; BP diastolic 79–94
[2020-03-21] MEDS: ALBUTEROL 6.7GM HFA INHALER ORI SCH ×4 (03:22→22:27)
[2020-03-21] MEDS: METHYLPREDNISOLONE SOD SUCC 40 MG/ML VIAL IV SCH ×2 (06:15→13:15)
[2020-03-21] MEDS: BLOOD SUGAR DIAGNOSTIC STRIP TEST SCH ×4 (06:15→22:27)
[2020-03-21] MEDS: ASCORBIC ACID 500 MG TABLET PO SCH ×2 (08:41→22:27)
[2020-03-21] MEDS: ZINC SULFATE 220 MG ( 50 ) CAPSULE PO SCH (08:41)
[2020-03-21] MEDS: FAMOTIDINE 20MG TABLET PO SCH ×2 (08:41→22:27)
[2020-03-21] MEDS: CHOLECALCIFEROL (D3) 1000 UNIT TABLET PO SCH (08:41)
[2020-03-21] MEDS: ENOXAPARIN 30MG/0.3ML SYR SUBCUT SCH ×2 (08:42→22:26)
[2020-03-21 10:11] LABS: BG BASE EXCESS 3.4 mmol/L (-2.0-2.0); BG CARBOXYHEMOGLOBIN 1.1 % (0.5-1.5); BG DEOXYHEMOGLOBIN 6.5 % (0.0-5.0); BG FRACTION INSPIRED OXYGEN 100; BG METHEMOGLOBIN 0.3 % (0.0-1.5); BG OXYGEN SATURATION 93.4 % (92.0-98.5); BG OXYHEMOGLOBIN 92.1 % (94.0-97.0); BG PCO2 47.3 mmHg (35.0-45.0); BG PH 7.406 (7.350-7.450); BG PO2 68.5 mmHg (75.0-100.0); BG SAMPLE SITE RIGHT RADIAL; BG TOTAL HEMOGLOBIN 16.4 g/dL (12.0-18.0); BG VENT MODE MASK - NRB
[2020-03-21] MEDS: INSULIN GLARGINE UD 100 UNITS/ML SYR SUBCUT SCH (10:21)
[2020-03-21] MEDS: INSULIN LISPRO 100 UNITS/ML SUBCUT SCH ×4 (10:21→22:28)
[2020-03-21] MEDS: PREDNISONE 20MG TABLET PO SCH (17:25)
[2020-03-21] MEDS: GUAIFENESIN 200MG/10ML SUGAR FREE UDC PO PRN (22:26)
[2020-03-22] MEDS: ALBUTEROL 6.7GM HFA INHALER ORI SCH ×4 (02:19→20:13)
[2020-03-22 04:00] VITALS: BP 129/88
[2020-03-22] MEDS: INSULIN LISPRO 100 UNITS/ML SUBCUT SCH ×4 (06:38→21:35)
[2020-03-22] MEDS: PREDNISONE 20MG TABLET PO SCH ×2 (06:38→17:11)
[2020-03-22] MEDS: BLOOD SUGAR DIAGNOSTIC STRIP TEST SCH ×4 (06:38→21:25)
[2020-03-22 08:00] VITALS: BP 141/94
[2020-03-22] MEDS: FAMOTIDINE 20MG TABLET PO SCH ×2 (08:52→21:34)
[2020-03-22] MEDS: CHOLECALCIFEROL (D3) 1000 UNIT TABLET PO SCH (08:52)
[2020-03-22] MEDS: ZINC SULFATE 220 MG ( 50 ) CAPSULE PO SCH (08:53)
[2020-03-22] MEDS: ASCORBIC ACID 500 MG TABLET PO SCH ×2 (08:53→21:34)
[2020-03-22] MEDS: ENOXAPARIN 30MG/0.3ML SYR SUBCUT SCH ×2 (08:54→21:35)
[2020-03-22] MEDS: INSULIN GLARGINE UD 100 UNITS/ML SYR SUBCUT SCH (09:01)
[2020-03-22] MEDS: GUAIFENESIN 200MG/10ML SUGAR FREE UDC PO PRN ×2 (10:11→21:41)
[2020-03-22 12:00] VITALS: BP 129/79
[2020-03-22 16:00] VITALS: BP 131/94
[2020-03-22 20:00] VITALS: BP 142/87
[2020-03-22] MEDS: ACETAMINOPHEN 325MG TABLET PO PRN (21:44)
[2020-03-23] VITALS: BP 132/81
[2020-03-23] MEDS: ALBUTEROL 6.7GM HFA INHALER ORI SCH ×4 (03:26→16:26)
[2020-03-23 04:00] VITALS: BP 119/84
[2020-03-23] MEDS: INSULIN LISPRO 100 UNITS/ML SUBCUT SCH ×4 (07:10→22:06)
[2020-03-23] MEDS: BLOOD SUGAR DIAGNOSTIC STRIP TEST SCH ×4 (07:12→21:00)
[2020-03-23 08:00] VITALS: BP 136/76
[2020-03-23 08:17] LABS: HEMOGLOBIN. 15.4 g/dL (14.0-18.0); MEAN CORPUSCULAR VOLUME 78.1 fL (80.0-94.0); MEAN PLATELET VOLUME 7.7 fl (7.4-10.4); PLATELET 271 x1000/uL (130-400); RED BLOOD CELL COUNT 6.14 mill/uL (4.7-6.1)
[2020-03-23 08:30] LABS: CHLORIDE 105 mEq/L (98-107)
[2020-03-23] MEDS: ASCORBIC ACID 500 MG TABLET PO SCH ×2 (08:38→22:05)
[2020-03-23] MEDS: FAMOTIDINE 20MG TABLET PO SCH ×2 (08:38→22:05)
[2020-03-23] MEDS: CHOLECALCIFEROL (D3) 1000 UNIT TABLET PO SCH (08:38)
[2020-03-23] MEDS: ZINC SULFATE 220 MG ( 50 ) CAPSULE PO SCH (08:38)
[2020-03-23] MEDS: PREDNISONE 20MG TABLET PO SCH ×2 (08:38→17:43)
[2020-03-23] MEDS: ENOXAPARIN 30MG/0.3ML SYR SUBCUT SCH ×2 (08:38→22:05)
[2020-03-23] MEDS: INSULIN GLARGINE UD 100 UNITS/ML SYR SUBCUT SCH (09:12)
[2020-03-23 12:00] VITALS: BP 134/89
[2020-03-23 16:00] VITALS: BP 133/85
[2020-03-23 20:41] VITALS: BP 145/88
[2020-03-23] MEDS: GUAIFENESIN 200MG/10ML SUGAR FREE UDC PO PRN (22:05)
[2020-03-23 23:27] LABS: PLATELET ESTIMATE NORMAL
[2020-03-24] VITALS: BP 153/99
[2020-03-24] MEDS: ALBUTEROL 6.7GM HFA INHALER ORI SCH ×4 (03:00→22:22)
[2020-03-24 04:00] VITALS: BP 118/79
[2020-03-24] MEDS: BLOOD SUGAR DIAGNOSTIC STRIP TEST SCH ×4 (06:45→21:00)
[2020-03-24] MEDS: PREDNISONE 20MG TABLET PO SCH ×2 (06:45→17:39)
[2020-03-24] MEDS: INSULIN LISPRO 100 UNITS/ML SUBCUT SCH ×4 (06:48→22:24)
[2020-03-24 08:00] VITALS: BP 120/90
[2020-03-24] MEDS: FAMOTIDINE 20MG TABLET PO SCH ×2 (08:55→22:22)
[2020-03-24] MEDS: ZINC SULFATE 220 MG ( 50 ) CAPSULE PO SCH (08:55)
[2020-03-24] MEDS: CHOLECALCIFEROL (D3) 1000 UNIT TABLET PO SCH (08:55)
[2020-03-24] MEDS: ASCORBIC ACID 500 MG TABLET PO SCH ×2 (09:00→22:22)
[2020-03-24] MEDS: ENOXAPARIN 30MG/0.3ML SYR SUBCUT SCH ×2 (09:08→22:26)
[2020-03-24] MEDS: INSULIN GLARGINE UD 100 UNITS/ML SYR SUBCUT SCH (09:08)
[2020-03-24 12:00] VITALS: BP 131/80
[2020-03-24] MEDS: GUAIFENESIN 200MG/10ML SUGAR FREE UDC PO PRN (13:09)
[2020-03-24 16:00] VITALS: BP 131/86
[2020-03-24 20:00] VITALS: BP 140/84
[2020-03-25] VITALS: BP 134/79
[2020-03-25] MEDS: ALBUTEROL 6.7GM HFA INHALER ORI SCH ×4 (05:03→20:33)
[2020-03-25] MEDS: BLOOD SUGAR DIAGNOSTIC STRIP TEST SCH ×4 (06:29→20:33)
[2020-03-25] MEDS: PREDNISONE 20MG TABLET PO SCH ×2 (06:33→17:25)
[2020-03-25] MEDS: INSULIN LISPRO 100 UNITS/ML SUBCUT SCH ×4 (07:10→20:46)
[2020-03-25 08:00] VITALS: BP 128/86
[2020-03-25] MEDS: ZINC SULFATE 220 MG ( 50 ) CAPSULE PO SCH (09:26)
[2020-03-25] MEDS: CHOLECALCIFEROL (D3) 1000 UNIT TABLET PO SCH (09:26)
[2020-03-25] MEDS: ENOXAPARIN 30MG/0.3ML SYR SUBCUT SCH ×2 (09:26→20:33)
[2020-03-25] MEDS: FAMOTIDINE 20MG TABLET PO SCH ×2 (09:26→20:33)
[2020-03-25] MEDS: ASCORBIC ACID 500 MG TABLET PO SCH ×2 (09:26→20:33)
[2020-03-25] MEDS: INSULIN GLARGINE UD 100 UNITS/ML SYR SUBCUT SCH (09:28)
[2020-03-25 16:00] VITALS: BP 138/82
[2020-03-25 20:00] VITALS: BP 126/86
[2020-03-26] VITALS: BP 134/83
[2020-03-26 04:00] VITALS: BP 126/84
[2020-03-26] MEDS: PREDNISONE 20MG TABLET PO SCH ×2 (06:20→17:39)
[2020-03-26] MEDS: BLOOD SUGAR DIAGNOSTIC STRIP TEST SCH ×4 (06:20→21:16)
[2020-03-26] MEDS: ALBUTEROL 6.7GM HFA INHALER ORI SCH ×4 (06:20→21:17)
[2020-03-26] MEDS: INSULIN LISPRO 100 UNITS/ML SUBCUT SCH ×4 (07:10→21:19)
[2020-03-26 08:00] VITALS: BP 134/84
[2020-03-26] MEDS: ASCORBIC ACID 500 MG TABLET PO SCH ×2 (09:48→21:16)
[2020-03-26] MEDS: ZINC SULFATE 220 MG ( 50 ) CAPSULE PO SCH (09:48)
[2020-03-26] MEDS: CHOLECALCIFEROL (D3) 1000 UNIT TABLET PO SCH (09:48)
[2020-03-26] MEDS: ENOXAPARIN 30MG/0.3ML SYR SUBCUT SCH ×2 (09:49→21:17)
[2020-03-26] MEDS: INSULIN GLARGINE UD 100 UNITS/ML SYR SUBCUT SCH (09:51)
[2020-03-26] MEDS: FAMOTIDINE 20MG TABLET PO SCH ×2 (09:52→21:16)
[2020-03-26 12:00] VITALS: BP 134/79
[2020-03-26 16:00] VITALS: BP 141/89
[2020-03-26 20:00] VITALS: BP 151/73
[2020-03-27] VITALS: BP 146/84
[2020-03-27 04:00] VITALS: BP 125/80
[2020-03-27] MEDS: PREDNISONE 20MG TABLET PO SCH ×2 (06:17→18:15)
[2020-03-27] MEDS: ALBUTEROL 6.7GM HFA INHALER ORI SCH ×4 (06:17→21:00)
[2020-03-27] MEDS: BLOOD SUGAR DIAGNOSTIC STRIP TEST SCH ×4 (06:17→21:00)
[2020-03-27] MEDS: INSULIN LISPRO 100 UNITS/ML SUBCUT SCH ×4 (07:10→22:16)
[2020-03-27 08:00] VITALS: BP 126/93
[2020-03-27] MEDS: CHOLECALCIFEROL (D3) 1000 UNIT TABLET PO SCH (09:23)
[2020-03-27] MEDS: ZINC SULFATE 220 MG ( 50 ) CAPSULE PO SCH (09:23)
[2020-03-27] MEDS: FAMOTIDINE 20MG TABLET PO SCH ×2 (09:23→21:59)
[2020-03-27] MEDS: ENOXAPARIN 30MG/0.3ML SYR SUBCUT SCH ×2 (09:24→21:00)
[2020-03-27] MEDS: ASCORBIC ACID 500 MG TABLET PO SCH ×2 (11:15→21:59)
[2020-03-27] MEDS: INSULIN GLARGINE UD 100 UNITS/ML SYR SUBCUT SCH (11:20)
[2020-03-27 12:00] VITALS: BP 132/88
[2020-03-27 16:00] VITALS: BP 128/72
[2020-03-27 20:39] VITALS: BP 124/84
[2020-03-28] VITALS (7 sets, daily range): BP systolic 117–138; BP diastolic 73–98
[2020-03-28] MEDS: ALBUTEROL 6.7GM HFA INHALER ORI SCH ×2 (03:32→09:25)
[2020-03-28] MEDS: BLOOD SUGAR DIAGNOSTIC STRIP TEST SCH ×4 (06:25→21:00)
[2020-03-28] MEDS: INSULIN LISPRO 100 UNITS/ML SUBCUT SCH ×4 (06:26→22:13)
[2020-03-28] MEDS: ASCORBIC ACID 500 MG TABLET PO SCH ×2 (09:00→21:00)
[2020-03-28] MEDS: CHOLECALCIFEROL (D3) 1000 UNIT TABLET PO SCH (09:24)
[2020-03-28] MEDS: ZINC SULFATE 220 MG ( 50 ) CAPSULE PO SCH (09:24)
[2020-03-28] MEDS: PREDNISONE 20MG TABLET PO SCH ×2 (09:24→17:58)
[2020-03-28] MEDS: ENOXAPARIN 30MG/0.3ML SYR SUBCUT SCH ×2 (09:24→22:09)
[2020-03-28] MEDS: FAMOTIDINE 20MG TABLET PO SCH ×2 (09:24→22:08)
[2020-03-28] MEDS: INSULIN GLARGINE UD 100 UNITS/ML SYR SUBCUT SCH (10:47)
[2020-03-28] MEDS ORDERED: DEXTROSE 50% WATER 50ML SYRINGE IV PRN (13:15)
[2020-03-28] MEDS ORDERED: CLONIDINE 0.1MG TABLET PO PRN (14:00)
[2020-03-29 04:00] VITALS: BP 126/84
[2020-03-29] MEDS: BLOOD SUGAR DIAGNOSTIC STRIP TEST SCH ×2 (06:35→21:00)
[2020-03-29] MEDS: INSULIN LISPRO 100 UNITS/ML SUBCUT SCH ×4 (07:10→21:00)
[2020-03-29 08:00] VITALS: BP 124/81
[2020-03-29] MEDS: ZINC SULFATE 220 MG ( 50 ) CAPSULE PO SCH (10:00)
[2020-03-29] MEDS: ASCORBIC ACID 500 MG TABLET PO SCH ×2 (10:00→22:28)
[2020-03-29] MEDS: FAMOTIDINE 20MG TABLET PO SCH ×2 (10:01→22:28)
[2020-03-29] MEDS: CHOLECALCIFEROL (D3) 1000 UNIT TABLET PO SCH (10:01)
[2020-03-29] MEDS: ENOXAPARIN 30MG/0.3ML SYR SUBCUT SCH ×2 (10:02→21:00)
[2020-03-29] MEDS: INSULIN GLARGINE UD 100 UNITS/ML SYR SUBCUT SCH (10:03)
[2020-03-29 12:00] VITALS: BP 137/83
[2020-03-29 16:00] VITALS: BP 116/71
[2020-03-29 20:00] VITALS: BP 120/76
[2020-03-30] VITALS: BP 125/84
[2020-03-30 04:00] VITALS: BP_SYST 120; BP_SYST 122; BP_DIAS 80
[2020-03-30] MEDS: BLOOD SUGAR DIAGNOSTIC STRIP TEST SCH ×3 (07:00→21:00)
[2020-03-30] MEDS: INSULIN LISPRO 100 UNITS/ML SUBCUT SCH ×3 (07:10→21:00)
[2020-03-30 07:29] LABS: HEMATOCRIT. 42.3 % (42.0-52.0); HEMOGLOBIN. 14.1 g/dL (14.0-18.0); MEAN CORPUSCULAR HEMOGLOBIN 26.2 pg (28.0-32.0); MEAN CORPUSCULAR VOLUME 78.7 fL (80.0-94.0); MEAN PLATELET VOLUME 7.5 fl (7.4-10.4); PLATELET 230 x1000/uL (130-400); RED BLOOD CELL COUNT 5.37 mill/uL (4.7-6.1); RED CELL DISTRIBUTION WIDTH 15.2 % (11.6-14.6)
[2020-03-30 07:59] LABS: CHLORIDE 96 mEq/L (98-107)
[2020-03-30 08:00] VITALS: BP 131/90
[2020-03-30] MEDS: PREDNISONE 20MG TABLET PO SCH (08:45)
[2020-03-30] MEDS: CHOLECALCIFEROL (D3) 1000 UNIT TABLET PO SCH (08:46)
[2020-03-30] MEDS: ZINC SULFATE 220 MG ( 50 ) CAPSULE PO SCH (08:46)
[2020-03-30] MEDS: ENOXAPARIN 30MG/0.3ML SYR SUBCUT SCH ×2 (08:46→22:43)
[2020-03-30 12:00] VITALS: BP 130/71
[2020-03-30] MEDS: FAMOTIDINE 20MG TABLET PO SCH ×2 (12:27→22:43)
[2020-03-30] MEDS: ASCORBIC ACID 500 MG TABLET PO SCH ×2 (12:27→23:02)
[2020-03-30] MEDS: INSULIN GLARGINE UD 100 UNITS/ML SYR SUBCUT SCH (12:28)
[2020-03-30] MEDS: GUAIFENESIN 200MG/10ML SUGAR FREE UDC PO PRN (14:50)
[2020-03-30 16:00] VITALS: BP 136/79
[2020-03-30 20:00] VITALS: BP 126/75
[2020-03-30 21:10] LABS: PLATELET ESTIMATE NORMAL
[2020-03-31] VITALS: BP 121/82
[2020-03-31 04:00] VITALS: BP 122/81
[2020-03-31] MEDS: BLOOD SUGAR DIAGNOSTIC STRIP TEST SCH ×4 (06:24→21:14)
[2020-03-31] MEDS: INSULIN LISPRO 100 UNITS/ML SUBCUT SCH ×4 (07:10→21:35)
[2020-03-31 08:00] VITALS: BP 112/75
[2020-03-31] MEDS: FAMOTIDINE 20MG TABLET PO SCH ×2 (08:14→21:15)
[2020-03-31] MEDS: ENOXAPARIN 30MG/0.3ML SYR SUBCUT SCH ×2 (08:14→21:16)
[2020-03-31] MEDS: CHOLECALCIFEROL (D3) 1000 UNIT TABLET PO SCH (08:15)
[2020-03-31] MEDS: ZINC SULFATE 220 MG ( 50 ) CAPSULE PO SCH (08:15)
[2020-03-31] MEDS: PREDNISONE 20MG TABLET PO SCH ×3 (08:15→17:46)
[2020-03-31] MEDS: ASCORBIC ACID 500 MG TABLET PO SCH ×2 (08:15→21:15)
[2020-03-31] MEDS: INSULIN GLARGINE UD 100 UNITS/ML SYR SUBCUT SCH (09:02)
[2020-03-31 12:00] VITALS: BP 109/72
[2020-03-31 16:00] VITALS: BP 114/78
[2020-03-31] MEDS: GUAIFENESIN 200MG/10ML SUGAR FREE UDC PO PRN (18:20)
[2020-03-31 20:00] VITALS: BP 140/87
[2020-04-01] VITALS: BP 123/75
[2020-04-01 04:00] VITALS: BP 121/78
[2020-04-01] MEDS: PREDNISONE 20MG TABLET PO SCH ×2 (05:39→19:05)
[2020-04-01] MEDS: BLOOD SUGAR DIAGNOSTIC STRIP TEST SCH ×4 (06:40→21:23)
[2020-04-01] MEDS: INSULIN LISPRO 100 UNITS/ML SUBCUT SCH ×4 (07:10→21:27)
[2020-04-01 08:00] VITALS: BP 128/86
[2020-04-01] MEDS: FAMOTIDINE 20MG TABLET PO SCH ×2 (11:02→21:29)
[2020-04-01] MEDS: ENOXAPARIN 30MG/0.3ML SYR SUBCUT SCH ×2 (11:02→21:29)
[2020-04-01] MEDS: CHOLECALCIFEROL (D3) 1000 UNIT TABLET PO SCH (11:02)
[2020-04-01] MEDS: INSULIN GLARGINE UD 100 UNITS/ML SYR SUBCUT SCH (11:05)
[2020-04-01] MEDS: ASCORBIC ACID 500 MG TABLET PO SCH ×2 (11:11→21:29)
[2020-04-01] MEDS: ZINC SULFATE 220 MG ( 50 ) CAPSULE PO SCH (11:11)
[2020-04-01 12:00] VITALS: BP 127/62
[2020-04-01 16:00] VITALS: BP 115/78
[2020-04-01 20:00] VITALS: BP 129/85
[2020-04-01] MEDS: GUAIFENESIN 200MG/10ML SUGAR FREE UDC PO PRN (21:28)
[2020-04-02] VITALS: BP 127/84
[2020-04-02 04:00] VITALS: BP 143/77
[2020-04-02] MEDS: PREDNISONE 20MG TABLET PO SCH ×2 (05:20→18:12)
[2020-04-02] MEDS: INSULIN LISPRO 100 UNITS/ML SUBCUT SCH ×4 (07:10→21:30)
[2020-04-02 08:00] VITALS: BP 124/88
[2020-04-02] MEDS: ZINC SULFATE 220 MG ( 50 ) CAPSULE PO SCH (09:00)
[2020-04-02] MEDS: ENOXAPARIN 30MG/0.3ML SYR SUBCUT SCH ×2 (09:00→21:30)
[2020-04-02] MEDS: CHOLECALCIFEROL (D3) 1000 UNIT TABLET PO SCH (09:00)
[2020-04-02] MEDS: ASCORBIC ACID 500 MG TABLET PO SCH ×2 (09:00→21:29)
[2020-04-02] MEDS: FAMOTIDINE 20MG TABLET PO SCH ×2 (09:01→21:29)
[2020-04-02] MEDS: INSULIN GLARGINE UD 100 UNITS/ML SYR SUBCUT SCH (10:46)
[2020-04-02 12:00] VITALS: BP 117/76
[2020-04-02 16:00] VITALS: BP 120/82
[2020-04-02 20:00] VITALS: BP 116/88
[2020-04-02] MEDS: BLOOD SUGAR DIAGNOSTIC STRIP TEST SCH (21:29)
[2020-04-02] MEDS: GUAIFENESIN 200MG/10ML SUGAR FREE UDC PO PRN (21:50)
[2020-04-03] VITALS: BP 138/76
[2020-04-03 04:00] VITALS: BP 113/74
[2020-04-03] MEDS: BLOOD SUGAR DIAGNOSTIC STRIP TEST SCH ×3 (06:45→20:55)
[2020-04-03] MEDS: PREDNISONE 20MG TABLET PO SCH ×2 (06:46→18:01)
[2020-04-03] MEDS: INSULIN LISPRO 100 UNITS/ML SUBCUT SCH ×4 (07:10→21:48)
[2020-04-03 08:00] VITALS: BP 116/70
[2020-04-03] MEDS: CHOLECALCIFEROL (D3) 1000 UNIT TABLET PO SCH (09:23)
[2020-04-03] MEDS: FAMOTIDINE 20MG TABLET PO SCH ×2 (09:24→20:18)
[2020-04-03] MEDS: ZINC SULFATE 220 MG ( 50 ) CAPSULE PO SCH (09:24)
[2020-04-03] MEDS: ASCORBIC ACID 500 MG TABLET PO SCH ×2 (09:24→20:18)
[2020-04-03] MEDS: ENOXAPARIN 30MG/0.3ML SYR SUBCUT SCH ×2 (09:24→20:19)
[2020-04-03] MEDS: INSULIN GLARGINE UD 100 UNITS/ML SYR SUBCUT SCH (09:35)
[2020-04-03] MEDS: GUAIFENESIN 200MG/10ML SUGAR FREE UDC PO PRN ×2 (09:40→18:02)
[2020-04-03 12:00] VITALS: BP 116/75
[2020-04-03 16:00] VITALS: BP 135/90
[2020-04-03 20:00] VITALS: BP 115/76
[2020-04-04] VITALS (7 sets, daily range): BP systolic 120–132; BP diastolic 72–94
[2020-04-04] MEDS: GUAIFENESIN 200MG/10ML SUGAR FREE UDC PO PRN ×2 (01:07→08:47)
[2020-04-04] MEDS: BLOOD SUGAR DIAGNOSTIC STRIP TEST SCH ×4 (06:14→21:00)
[2020-04-04] MEDS: INSULIN LISPRO 100 UNITS/ML SUBCUT SCH ×4 (07:20→21:45)
[2020-04-04] MEDS: ASCORBIC ACID 500 MG TABLET PO SCH ×2 (08:46→21:43)
[2020-04-04] MEDS: FAMOTIDINE 20MG TABLET PO SCH ×2 (08:46→21:43)
[2020-04-04] MEDS: PREDNISONE 20MG TABLET PO SCH ×2 (08:46→18:13)
[2020-04-04] MEDS: ZINC SULFATE 220 MG ( 50 ) CAPSULE PO SCH (08:47)
[2020-04-04] MEDS: CHOLECALCIFEROL (D3) 1000 UNIT TABLET PO SCH (08:47)
[2020-04-04] MEDS: ENOXAPARIN 30MG/0.3ML SYR SUBCUT SCH (08:48)
[2020-04-04] MEDS: INSULIN GLARGINE UD 100 UNITS/ML SYR SUBCUT SCH (16:02)
[2020-04-05] VITALS: BP 115/72
[2020-04-05 04:00] VITALS: BP 122/77
[2020-04-05] MEDS: BLOOD SUGAR DIAGNOSTIC STRIP TEST SCH ×4 (06:19→20:56)
[2020-04-05] MEDS: INSULIN LISPRO 100 UNITS/ML SUBCUT SCH ×4 (07:20→21:00)
[2020-04-05 08:00] VITALS: BP 137/104
[2020-04-05] MEDS: ENOXAPARIN 40MG/0.4ML SYR SUBCUT SCH (09:13)
[2020-04-05] MEDS: CHOLECALCIFEROL (D3) 1000 UNIT TABLET PO SCH (09:13)
[2020-04-05] MEDS: PREDNISONE 20MG TABLET PO SCH ×2 (09:14→17:51)
[2020-04-05] MEDS: FAMOTIDINE 20MG TABLET PO SCH ×2 (09:14→21:02)
[2020-04-05] MEDS: ZINC SULFATE 220 MG ( 50 ) CAPSULE PO SCH (09:14)
[2020-04-05] MEDS: ASCORBIC ACID 500 MG TABLET PO SCH ×2 (09:14→21:02)
[2020-04-05 20:00] VITALS: BP 129/80
[2020-04-06] VITALS (8 sets, daily range): BP systolic 98–135; BP diastolic 65–84
[2020-04-06] MEDS: BLOOD SUGAR DIAGNOSTIC STRIP TEST SCH ×4 (06:39→21:22)
[2020-04-06] MEDS: INSULIN LISPRO 100 UNITS/ML SUBCUT SCH ×4 (06:39→21:22)
[2020-04-06] MEDS: PREDNISONE 20MG TABLET PO SCH ×2 (06:39→17:18)
[2020-04-06 07:53] LABS: CHLORIDE 99 mEq/L (98-107)
[2020-04-06 07:54] LABS: HEMATOCRIT. 37.6 % (42.0-52.0); HEMOGLOBIN. 12.2 g/dL (14.0-18.0); MEAN CORPUSCULAR HEMOGLOBIN 25.6 pg (28.0-32.0); MEAN CORPUSCULAR VOLUME 78.6 fL (80.0-94.0); MEAN PLATELET VOLUME 7.7 fl (7.4-10.4); PLATELET 197 x1000/uL (130-400); RED BLOOD CELL COUNT 4.78 mill/uL (4.7-6.1); RED CELL DISTRIBUTION WIDTH 15.3 % (11.6-14.6)
[2020-04-06] MEDS: FAMOTIDINE 20MG TABLET PO SCH ×2 (09:29→21:21)
[2020-04-06] MEDS: ZINC SULFATE 220 MG ( 50 ) CAPSULE PO SCH (09:29)
[2020-04-06] MEDS: ASCORBIC ACID 500 MG TABLET PO SCH ×2 (09:29→21:21)
[2020-04-06] MEDS: CHOLECALCIFEROL (D3) 1000 UNIT TABLET PO SCH (09:29)
[2020-04-06] MEDS: ENOXAPARIN 40MG/0.4ML SYR SUBCUT SCH (09:30)
[2020-04-07] VITALS (10 sets, daily range): BP systolic 109–138; BP diastolic 61–87
[2020-04-07 00:08] LABS: PLATELET ESTIMATE NORMAL
[2020-04-07] MEDS: BLOOD SUGAR DIAGNOSTIC STRIP TEST SCH ×4 (06:58→20:38)
[2020-04-07] MEDS: INSULIN LISPRO 100 UNITS/ML SUBCUT SCH ×4 (07:20→20:47)
[2020-04-07 07:58] LABS: C REACTIVE PROTEIN QUANT 1.2 mg/L (0.0-3.0)
[2020-04-07] MEDS: PREDNISONE 20MG TABLET PO SCH ×2 (08:17→18:19)
[2020-04-07] MEDS: ZINC SULFATE 220 MG ( 50 ) CAPSULE PO SCH (08:18)
[2020-04-07] MEDS: ENOXAPARIN 40MG/0.4ML SYR SUBCUT SCH (08:18)
[2020-04-07] MEDS: ASCORBIC ACID 500 MG TABLET PO SCH ×2 (08:18→20:38)
[2020-04-07] MEDS: FAMOTIDINE 20MG TABLET PO SCH ×2 (08:18→20:38)
[2020-04-07] MEDS: CHOLECALCIFEROL (D3) 1000 UNIT TABLET PO SCH (08:18)
[2020-04-07 13:32] LABS: BG BASE EXCESS -10.5 mmol/L (-2.0-2.0); BG CARBOXYHEMOGLOBIN 0.2 % (0.5-1.5); BG DEOXYHEMOGLOBIN 10.5 % (0.0-5.0); BG FRACTION INSPIRED OXYGEN PINSP= 32 ITIME =.5; BG HCO3 ACT 15.6 mmol/L (22.0-26.0); BG METHEMOGLOBIN 0.3 % (0.0-1.5); BG OXYGEN SATURATION 89.4 % (92.0-98.5); BG PCO2 35.6 mmHg (35.0-45.0); BG PO2 56.6 mmHg (75.0-100.0); BG SAMPLE SITE RIGHT BRACHIAL; BG TOTAL HEMOGLOBIN 12.4 g/dL (12.0-18.0); BG VENT MODE VENT - P/C
[2020-04-07] MEDS: SIMETHICONE 80MG TABLET CHEW PO PRN (19:02)
[2020-04-08] VITALS (9 sets, daily range): BP systolic 117–149; BP diastolic 71–95
[2020-04-08] MEDS: BLOOD SUGAR DIAGNOSTIC STRIP TEST SCH ×4 (06:24→21:08)
[2020-04-08] MEDS: PREDNISONE 20MG TABLET PO SCH ×2 (06:26→18:01)
[2020-04-08] MEDS: INSULIN LISPRO 100 UNITS/ML SUBCUT SCH ×4 (06:32→21:07)
[2020-04-08] MEDS: CHOLECALCIFEROL (D3) 1000 UNIT TABLET PO SCH (09:10)
[2020-04-08] MEDS: ZINC SULFATE 220 MG ( 50 ) CAPSULE PO SCH (09:10)
[2020-04-08] MEDS: ASCORBIC ACID 500 MG TABLET PO SCH ×3 (09:11→21:08)
[2020-04-08] MEDS: FAMOTIDINE 20MG TABLET PO SCH ×3 (09:11→21:08)
[2020-04-08] MEDS: ENOXAPARIN 40MG/0.4ML SYR SUBCUT SCH (09:11)
[2020-04-09] VITALS (13 sets, daily range): BP systolic 104–148; BP diastolic 53–81
[2020-04-09] MEDS: BLOOD SUGAR DIAGNOSTIC STRIP TEST SCH ×4 (06:56→21:39)
[2020-04-09] MEDS: INSULIN LISPRO 100 UNITS/ML SUBCUT SCH ×4 (07:20→21:00)
[2020-04-09] MEDS: FAMOTIDINE 20MG TABLET PO SCH ×2 (08:16→21:35)
[2020-04-09] MEDS: CHOLECALCIFEROL (D3) 1000 UNIT TABLET PO SCH (08:16)
[2020-04-09] MEDS: ZINC SULFATE 220 MG ( 50 ) CAPSULE PO SCH (08:16)
[2020-04-09] MEDS: ASCORBIC ACID 500 MG TABLET PO SCH ×2 (08:17→21:35)
[2020-04-09] MEDS: PREDNISONE 20MG TABLET PO SCH ×2 (08:17→17:27)
[2020-04-09] MEDS: ENOXAPARIN 40MG/0.4ML SYR SUBCUT SCH (08:17)
[2020-04-09] MEDS ORDERED: PNEUMOCOCCAL 23-VAL P-SAC VAC 0.5 ML IM ONE (12:15)
[2020-04-09] MEDS ORDERED: INFLUENZA VACCINE 05/PF 0.5 ML VIAL IM ONE (12:15)
[2020-04-09] MEDS: TRAZODONE HCL 50MG TABLET PO PRN (21:49)
[2020-04-10] VITALS (13 sets, daily range): BP systolic 110–152; BP diastolic 54–80
[2020-04-10] MEDS: BLOOD SUGAR DIAGNOSTIC STRIP TEST SCH ×4 (06:27→20:16)
[2020-04-10] MEDS: INSULIN LISPRO 100 UNITS/ML SUBCUT SCH ×4 (07:20→20:24)
[2020-04-10] MEDS: ASCORBIC ACID 500 MG TABLET PO SCH ×2 (08:03→20:15)
[2020-04-10] MEDS: ZINC SULFATE 220 MG ( 50 ) CAPSULE PO SCH (08:04)
[2020-04-10] MEDS: PREDNISONE 20MG TABLET PO SCH ×2 (08:04→18:09)
[2020-04-10] MEDS: FAMOTIDINE 20MG TABLET PO SCH ×2 (08:04→20:15)
[2020-04-10] MEDS: CHOLECALCIFEROL (D3) 1000 UNIT TABLET PO SCH (08:04)
[2020-04-10] MEDS: ENOXAPARIN 40MG/0.4ML SYR SUBCUT SCH (08:05)
[2020-04-10] MEDS ORDERED: IPRATROPIUM/ALBUTEROL 0.5-3(2.5)MG/3ML NEB HHN PRN (10:15)
[2020-04-10] MEDS: IPRATROPIUM/ALBUTEROL 0.5-3(2.5)MG/3ML NEB HHN SCH ×2 (16:00→21:25)
[2020-04-11] VITALS (8 sets, daily range): BP systolic 111–142; BP diastolic 58–95
[2020-04-11] MEDS: IPRATROPIUM/ALBUTEROL 0.5-3(2.5)MG/3ML NEB HHN SCH ×4 (02:20→22:03)
[2020-04-11] MEDS: BLOOD SUGAR DIAGNOSTIC STRIP TEST SCH ×4 (06:50→20:46)
[2020-04-11] MEDS: ENOXAPARIN 40MG/0.4ML SYR SUBCUT SCH (08:28)
[2020-04-11] MEDS: FAMOTIDINE 20MG TABLET PO SCH ×2 (08:28→20:49)
[2020-04-11] MEDS: INSULIN LISPRO 100 UNITS/ML SUBCUT SCH ×4 (08:28→20:46)
[2020-04-11] MEDS: PREDNISONE 20MG TABLET PO SCH ×2 (08:29→17:51)
[2020-04-11] MEDS: ZINC SULFATE 220 MG ( 50 ) CAPSULE PO SCH (08:29)
[2020-04-11] MEDS: CHOLECALCIFEROL (D3) 1000 UNIT TABLET PO SCH (08:29)
[2020-04-11] MEDS: ASCORBIC ACID 500 MG TABLET PO SCH ×2 (08:36→20:49)
[2020-04-11] MEDS: SIMETHICONE 80MG TABLET CHEW PO PRN (20:52)
[2020-04-12] VITALS: BP 121/79
[2020-04-12] MEDS: IPRATROPIUM/ALBUTEROL 0.5-3(2.5)MG/3ML NEB HHN SCH ×4 (02:25→20:25)
[2020-04-12 04:00] VITALS: BP 125/64
[2020-04-12] MEDS: BLOOD SUGAR DIAGNOSTIC STRIP TEST SCH ×4 (06:27→21:02)
[2020-04-12] MEDS: INSULIN LISPRO 100 UNITS/ML SUBCUT SCH ×4 (07:20→21:10)
[2020-04-12 08:00] VITALS: BP 125/67
[2020-04-12] MEDS: ASCORBIC ACID 500 MG TABLET PO SCH ×2 (08:31→21:09)
[2020-04-12] MEDS: CHOLECALCIFEROL (D3) 1000 UNIT TABLET PO SCH (08:31)
[2020-04-12] MEDS: ENOXAPARIN 40MG/0.4ML SYR SUBCUT SCH (08:32)
[2020-04-12] MEDS: PREDNISONE 20MG TABLET PO SCH ×2 (08:32→17:45)
[2020-04-12] MEDS: ZINC SULFATE 220 MG ( 50 ) CAPSULE PO SCH (08:32)
[2020-04-12] MEDS: FAMOTIDINE 20MG TABLET PO SCH ×2 (08:32→21:10)
[2020-04-12 12:00] VITALS: BP 131/78
[2020-04-12] MEDS: SUCRALFATE 1 G/10 ML UDC PO SCH ×3 (13:31→21:09)
[2020-04-12 16:00] VITALS: BP 111/38
[2020-04-12 20:00] VITALS: BP 123/77
[2020-04-13] VITALS (7 sets, daily range): BP systolic 107–137; BP diastolic 65–76
[2020-04-13] MEDS: IPRATROPIUM/ALBUTEROL 0.5-3(2.5)MG/3ML NEB HHN SCH ×4 (03:00→21:37)
[2020-04-13] MEDS: SUCRALFATE 1 G/10 ML UDC PO SCH ×4 (06:14→20:57)
[2020-04-13] MEDS: BLOOD SUGAR DIAGNOSTIC STRIP TEST SCH ×4 (06:16→20:48)
[2020-04-13] MEDS: FAMOTIDINE 20MG TABLET PO SCH ×2 (08:11→20:57)
[2020-04-13] MEDS: ASCORBIC ACID 500 MG TABLET PO SCH ×2 (08:11→20:57)
[2020-04-13] MEDS: PREDNISONE 20MG TABLET PO SCH ×2 (08:11→18:14)
[2020-04-13] MEDS: CHOLECALCIFEROL (D3) 1000 UNIT TABLET PO SCH (08:11)
[2020-04-13] MEDS: ZINC SULFATE 220 MG ( 50 ) CAPSULE PO SCH (08:12)
[2020-04-13] MEDS: ENOXAPARIN 40MG/0.4ML SYR SUBCUT SCH (08:12)
[2020-04-13] MEDS: INSULIN LISPRO 100 UNITS/ML SUBCUT SCH ×4 (08:28→21:00)
[2020-04-13] MEDS ORDERED: ONDANSETRON HCL 4MG/2ML INJ IV PRN (10:15)
[2020-04-14] MEDS: IPRATROPIUM/ALBUTEROL 0.5-3(2.5)MG/3ML NEB HHN SCH ×4 (01:16→21:45)
[2020-04-14 04:00] VITALS: BP 115/76
[2020-04-14] MEDS: SUCRALFATE 1 G/10 ML UDC PO SCH ×4 (06:12→21:11)
[2020-04-14] MEDS: INSULIN LISPRO 100 UNITS/ML SUBCUT SCH ×4 (06:18→21:13)
[2020-04-14] MEDS: BLOOD SUGAR DIAGNOSTIC STRIP TEST SCH ×4 (06:18→21:00)
[2020-04-14 07:08] LABS: BASOPHILS % 0.2 % (0.0-2.0); HEMATOCRIT. 38.2 % (42.0-52.0); HEMOGLOBIN. 12.5 g/dL (14.0-18.0); LYMPHOCYTES % 12.6 % (20.0-50.0); MEAN CORPUSCULAR HEMOGLOBIN 25.7 pg (28.0-32.0); MEAN CORPUSCULAR VOLUME 78.6 fL (80.0-94.0); MEAN PLATELET VOLUME 7.3 fl (7.4-10.4); MONOCYTES % 4.4 % (2.0-8.0); NEUTROPHILS % 82.8 % (40.0-76.0); PLATELET 261 x1000/uL (130-400); RED BLOOD CELL COUNT 4.86 mill/uL (4.7-6.1); RED CELL DISTRIBUTION WIDTH 15.4 % (11.6-14.6)
[2020-04-14 07:11] LABS: CHLORIDE 99 mEq/L (98-107)
[2020-04-14 08:00] VITALS: BP 129/64
[2020-04-14] MEDS: PREDNISONE 20MG TABLET PO SCH ×2 (08:08→17:41)
[2020-04-14] MEDS: FAMOTIDINE 20MG TABLET PO SCH ×2 (08:08→21:11)
[2020-04-14] MEDS: ASCORBIC ACID 500 MG TABLET PO SCH ×2 (08:08→21:11)
[2020-04-14] MEDS: CHOLECALCIFEROL (D3) 1000 UNIT TABLET PO SCH (08:08)
[2020-04-14] MEDS: ZINC SULFATE 220 MG ( 50 ) CAPSULE PO SCH (08:09)
[2020-04-14] MEDS: ENOXAPARIN 40MG/0.4ML SYR SUBCUT SCH (08:09)
[2020-04-14 12:01] VITALS: BP 119/66
[2020-04-14 16:22] VITALS: BP 112/72
[2020-04-14 20:00] VITALS: BP 142/77
[2020-04-14] MEDS: GUAIFENESIN 200MG/10ML SUGAR FREE UDC PO PRN (21:12)
[2020-04-14 22:00] VITALS: BP 117/77
[2020-04-15] VITALS (9 sets, daily range): BP systolic 95–129; BP diastolic 54–91
[2020-04-15] MEDS: IPRATROPIUM/ALBUTEROL 0.5-3(2.5)MG/3ML NEB HHN SCH ×3 (04:36→14:08)
[2020-04-15] MEDS: BLOOD SUGAR DIAGNOSTIC STRIP TEST SCH ×4 (06:02→22:15)
[2020-04-15] MEDS: SUCRALFATE 1 G/10 ML UDC PO SCH ×4 (06:02→22:23)
[2020-04-15] MEDS: FAMOTIDINE 20MG TABLET PO SCH ×2 (08:45→22:24)
[2020-04-15] MEDS: ASCORBIC ACID 500 MG TABLET PO SCH ×2 (08:45→22:24)
[2020-04-15] MEDS: CHOLECALCIFEROL (D3) 1000 UNIT TABLET PO SCH (08:45)
[2020-04-15] MEDS: PREDNISONE 20MG TABLET PO SCH ×2 (08:46→17:35)
[2020-04-15] MEDS: ZINC SULFATE 220 MG ( 50 ) CAPSULE PO SCH (08:46)
[2020-04-15] MEDS: ENOXAPARIN 40MG/0.4ML SYR SUBCUT SCH (08:47)
[2020-04-15] MEDS: INSULIN LISPRO 100 UNITS/ML SUBCUT SCH ×4 (09:00→22:29)
[2020-04-16] VITALS (11 sets, daily range): BP systolic 116–143; BP diastolic 64–88
[2020-04-16] MEDS: SUCRALFATE 1 G/10 ML UDC PO SCH ×4 (06:39→20:38)
[2020-04-16] MEDS: BLOOD SUGAR DIAGNOSTIC STRIP TEST SCH ×4 (06:42→20:20)
[2020-04-16] MEDS: FAMOTIDINE 20MG TABLET PO SCH ×2 (08:03→20:39)
[2020-04-16] MEDS: ZINC SULFATE 220 MG ( 50 ) CAPSULE PO SCH (08:03)
[2020-04-16] MEDS: ASCORBIC ACID 500 MG TABLET PO SCH ×2 (08:03→20:38)
[2020-04-16] MEDS: CHOLECALCIFEROL (D3) 1000 UNIT TABLET PO SCH (08:03)
[2020-04-16] MEDS: PREDNISONE 20MG TABLET PO SCH ×2 (08:03→18:21)
[2020-04-16] MEDS: ENOXAPARIN 40MG/0.4ML SYR SUBCUT SCH (08:04)
[2020-04-16] MEDS: INSULIN LISPRO 100 UNITS/ML SUBCUT SCH ×4 (08:04→20:43)
[2020-04-16 08:39] LABS: BG BASE EXCESS 7.8 mmol/L (-2.0-2.0); BG CARBOXYHEMOGLOBIN 1.1 % (0.5-1.5); BG DEOXYHEMOGLOBIN 5.5 % (0.0-5.0); BG FRACTION INSPIRED OXYGEN 52; BG HCO3 ACT 33.5 mmol/L (22.0-26.0); BG METHEMOGLOBIN 0.3 % (0.0-1.5); BG OXYGEN SATURATION 94.4 % (92.0-98.5); BG OXYHEMOGLOBIN 93.1 % (94.0-97.0); BG PCO2 51.1 mmHg (35.0-45.0); BG PH 7.435 (7.350-7.450); BG PO2 70.3 mmHg (75.0-100.0); BG SAMPLE SITE RIGHT RADIAL; BG TOTAL HEMOGLOBIN 13.9 g/dL (12.0-18.0); BG VENT MODE MASK - SIMPLE
[2020-04-16] MEDS ORDERED: LIDOCAINE HCL/PF 1% 2ML VIAL ONE (10:00)
[2020-04-16] MEDS: IPRATROPIUM/ALBUTEROL 0.5-3(2.5)MG/3ML NEB HHN SCH ×3 (10:10→21:45)
[2020-04-16] MEDS ORDERED: SODIUM CHLORIDE 45ML SPRAY NS PRN (10:30)
[2020-04-17] VITALS (12 sets, daily range): BP systolic 105–136; BP diastolic 66–84
[2020-04-17] MEDS: IPRATROPIUM/ALBUTEROL 0.5-3(2.5)MG/3ML NEB HHN SCH ×5 (01:04→21:50)
[2020-04-17] MEDS: SUCRALFATE 1 G/10 ML UDC PO SCH ×4 (06:17→21:50)
[2020-04-17] MEDS: BLOOD SUGAR DIAGNOSTIC STRIP TEST SCH ×4 (07:02→21:00)
[2020-04-17] MEDS: CHOLECALCIFEROL (D3) 1000 UNIT TABLET PO SCH (08:32)
[2020-04-17] MEDS: ZINC SULFATE 220 MG ( 50 ) CAPSULE PO SCH (08:32)
[2020-04-17] MEDS: ASCORBIC ACID 500 MG TABLET PO SCH ×2 (08:32→21:50)
[2020-04-17] MEDS: FAMOTIDINE 20MG TABLET PO SCH ×2 (08:33→21:50)
[2020-04-17] MEDS: PREDNISONE 20MG TABLET PO SCH ×2 (08:33→17:00)
[2020-04-17] MEDS: ENOXAPARIN 40MG/0.4ML SYR SUBCUT SCH (08:33)
[2020-04-17] MEDS: INSULIN LISPRO 100 UNITS/ML SUBCUT SCH ×4 (08:34→22:48)
[2020-04-18] VITALS (12 sets, daily range): BP systolic 103–151; BP diastolic 70–84
[2020-04-18] MEDS: SUCRALFATE 1 G/10 ML UDC PO SCH ×4 (06:59→21:26)
[2020-04-18] MEDS: BLOOD SUGAR DIAGNOSTIC STRIP TEST SCH ×4 (07:02→21:55)
[2020-04-18] MEDS: PREDNISONE 20MG TABLET PO SCH ×2 (08:25→17:23)
[2020-04-18] MEDS: ZINC SULFATE 220 MG ( 50 ) CAPSULE PO SCH (08:25)
[2020-04-18] MEDS: ASCORBIC ACID 500 MG TABLET PO SCH ×2 (08:25→21:26)
[2020-04-18] MEDS: CHOLECALCIFEROL (D3) 1000 UNIT TABLET PO SCH (08:25)
[2020-04-18] MEDS: FAMOTIDINE 20MG TABLET PO SCH ×2 (08:25→21:26)
[2020-04-18] MEDS: INSULIN LISPRO 100 UNITS/ML SUBCUT SCH ×4 (08:26→22:08)
[2020-04-18] MEDS: ENOXAPARIN 40MG/0.4ML SYR SUBCUT SCH (08:26)
[2020-04-18] MEDS: IPRATROPIUM/ALBUTEROL 0.5-3(2.5)MG/3ML NEB HHN SCH ×3 (08:45→21:57)
[2020-04-18] MEDS: GUAIFENESIN 200MG/10ML SUGAR FREE UDC PO PRN (12:11)
[2020-04-19] VITALS (13 sets, daily range): BP systolic 108–144; BP diastolic 55–95
[2020-04-19] MEDS: IPRATROPIUM/ALBUTEROL 0.5-3(2.5)MG/3ML NEB HHN SCH ×2 (03:04→10:04)
[2020-04-19] MEDS: SUCRALFATE 1 G/10 ML UDC PO SCH ×4 (06:47→20:51)
[2020-04-19] MEDS: BLOOD SUGAR DIAGNOSTIC STRIP TEST SCH ×4 (07:08→20:46)
[2020-04-19] MEDS: CHOLECALCIFEROL (D3) 1000 UNIT TABLET PO SCH (07:55)
[2020-04-19] MEDS: ZINC SULFATE 220 MG ( 50 ) CAPSULE PO SCH (07:55)
[2020-04-19] MEDS: ASCORBIC ACID 500 MG TABLET PO SCH ×2 (07:55→20:52)
[2020-04-19] MEDS: PREDNISONE 20MG TABLET PO SCH ×2 (07:55→17:38)
[2020-04-19] MEDS: FAMOTIDINE 20MG TABLET PO SCH ×2 (07:55→20:52)
[2020-04-19] MEDS: ENOXAPARIN 40MG/0.4ML SYR SUBCUT SCH (07:56)
[2020-04-19] MEDS: GUAIFENESIN 200MG/10ML SUGAR FREE UDC PO PRN ×2 (07:59→20:51)
[2020-04-19] MEDS: INSULIN LISPRO 100 UNITS/ML SUBCUT SCH ×4 (08:07→20:53)
[2020-04-19 10:13] LABS: CHLORIDE 100 mEq/L (98-107)
[2020-04-20 04:00] VITALS: BP 121/83
[2020-04-20] MEDS: SUCRALFATE 1 G/10 ML UDC PO SCH ×4 (06:14→20:25)
[2020-04-20 08:00] VITALS: BP 117/88
[2020-04-20] MEDS: BLOOD SUGAR DIAGNOSTIC STRIP TEST SCH ×4 (08:03→20:25)
[2020-04-20] MEDS: PREDNISONE 20MG TABLET PO SCH (09:42)
[2020-04-20] MEDS: ASCORBIC ACID 500 MG TABLET PO SCH ×2 (09:43→20:25)
[2020-04-20] MEDS: ZINC SULFATE 220 MG ( 50 ) CAPSULE PO SCH (09:43)
[2020-04-20] MEDS: FAMOTIDINE 20MG TABLET PO SCH ×2 (09:43→20:25)
[2020-04-20] MEDS: CHOLECALCIFEROL (D3) 1000 UNIT TABLET PO SCH (09:44)
[2020-04-20] MEDS: ENOXAPARIN 40MG/0.4ML SYR SUBCUT SCH (09:45)
[2020-04-20] MEDS: INSULIN LISPRO 100 UNITS/ML SUBCUT SCH ×4 (09:46→20:52)
[2020-04-20] MEDS: GUAIFENESIN 200MG/10ML SUGAR FREE UDC PO PRN ×2 (10:24→20:49)
[2020-04-20 12:00] VITALS: BP 113/73
[2020-04-20 16:00] VITALS: BP 110/59
[2020-04-20 20:00] VITALS: BP 133/89
[2020-04-21] VITALS: BP 116/81
[2020-04-21 04:00] VITALS: BP 126/63
[2020-04-21] MEDS: IPRATROPIUM/ALBUTEROL 0.5-3(2.5)MG/3ML NEB HHN SCH ×4 (05:06→21:44)
[2020-04-21] MEDS: SUCRALFATE 1 G/10 ML UDC PO SCH ×4 (06:21→20:47)
[2020-04-21] MEDS: BLOOD SUGAR DIAGNOSTIC STRIP TEST SCH ×4 (06:22→20:48)
[2020-04-21] MEDS: INSULIN LISPRO 100 UNITS/ML SUBCUT SCH ×4 (07:22→20:56)
[2020-04-21 08:00] VITALS: BP 106/67
[2020-04-21] MEDS: CHOLECALCIFEROL (D3) 1000 UNIT TABLET PO SCH (08:51)
[2020-04-21] MEDS: ENOXAPARIN 40MG/0.4ML SYR SUBCUT SCH (08:52)
[2020-04-21] MEDS: ASCORBIC ACID 500 MG TABLET PO SCH ×2 (08:52→20:47)
[2020-04-21] MEDS: FAMOTIDINE 20MG TABLET PO SCH ×2 (08:52→20:47)
[2020-04-21] MEDS: ZINC SULFATE 220 MG ( 50 ) CAPSULE PO SCH (08:52)
[2020-04-21] MEDS: GUAIFENESIN 200MG/10ML SUGAR FREE UDC PO PRN ×2 (11:11→17:31)
[2020-04-21 12:00] VITALS: BP 102/67
[2020-04-21] MEDS: ACETAMINOPHEN 325MG TABLET PO PRN (14:13)
[2020-04-21 16:00] VITALS: BP 104/77
[2020-04-21 20:00] VITALS: BP 105/72
[2020-04-22] VITALS: BP 102/72
[2020-04-22] MEDS: GUAIFENESIN 200MG/10ML SUGAR FREE UDC PO PRN (01:18)
[2020-04-22] MEDS: IPRATROPIUM/ALBUTEROL 0.5-3(2.5)MG/3ML NEB HHN SCH ×4 (03:37→20:47)
[2020-04-22 04:00] VITALS: BP 111/76
[2020-04-22] MEDS: BLOOD SUGAR DIAGNOSTIC STRIP TEST SCH ×4 (06:36→21:02)
[2020-04-22] MEDS: SUCRALFATE 1 G/10 ML UDC PO SCH ×4 (06:36→21:02)
[2020-04-22] MEDS: INSULIN LISPRO 100 UNITS/ML SUBCUT SCH ×4 (07:50→21:00)
[2020-04-22 08:00] VITALS: BP 116/83
[2020-04-22] MEDS: ASCORBIC ACID 500 MG TABLET PO SCH ×2 (08:59→21:02)
[2020-04-22] MEDS: ENOXAPARIN 40MG/0.4ML SYR SUBCUT SCH (08:59)
[2020-04-22] MEDS: ZINC SULFATE 220 MG ( 50 ) CAPSULE PO SCH (08:59)
[2020-04-22] MEDS: FAMOTIDINE 20MG TABLET PO SCH ×2 (08:59→21:02)
[2020-04-22] MEDS: CHOLECALCIFEROL (D3) 1000 UNIT TABLET PO SCH (09:00)
[2020-04-22] MEDS: ACETAMINOPHEN 325MG TABLET PO PRN (10:41)
[2020-04-22 12:00] VITALS: BP 104/55
[2020-04-22 16:00] VITALS: BP 101/70
[2020-04-22 20:00] VITALS: BP 109/79
[2020-04-23] VITALS: BP 121/79
[2020-04-23] MEDS: IPRATROPIUM/ALBUTEROL 0.5-3(2.5)MG/3ML NEB HHN SCH ×5 (02:36→21:39)
[2020-04-23 04:00] VITALS: BP 122/66
[2020-04-23] MEDS: BLOOD SUGAR DIAGNOSTIC STRIP TEST SCH ×4 (06:13→21:57)
[2020-04-23] MEDS: SUCRALFATE 1 G/10 ML UDC PO SCH ×4 (06:14→22:02)
[2020-04-23] MEDS: INSULIN LISPRO 100 UNITS/ML SUBCUT SCH ×4 (07:34→21:00)
[2020-04-23 08:00] VITALS: BP 116/78
[2020-04-23] MEDS: ZINC SULFATE 220 MG ( 50 ) CAPSULE PO SCH (09:13)
[2020-04-23] MEDS: ASCORBIC ACID 500 MG TABLET PO SCH ×2 (09:13→22:02)
[2020-04-23] MEDS: CHOLECALCIFEROL (D3) 1000 UNIT TABLET PO SCH ×2 (09:13→22:02)
[2020-04-23] MEDS: ENOXAPARIN 40MG/0.4ML SYR SUBCUT SCH (09:13)
[2020-04-23] MEDS: FAMOTIDINE 20MG TABLET PO SCH ×2 (10:55→22:03)
[2020-04-23 12:00] VITALS: BP 114/84
[2020-04-23 16:00] VITALS: BP 114/78
[2020-04-23] MEDS: PREDNISONE 20MG TABLET PO SCH (17:28)
[2020-04-23 20:00] VITALS: BP 105/68
[2020-04-24] VITALS: BP 100/76
[2020-04-24] MEDS: IPRATROPIUM/ALBUTEROL 0.5-3(2.5)MG/3ML NEB HHN SCH ×3 (01:36→21:00)
[2020-04-24 04:00] VITALS: BP 111/66
[2020-04-24] MEDS: BLOOD SUGAR DIAGNOSTIC STRIP TEST SCH ×4 (05:37→20:46)
[2020-04-24] MEDS: INSULIN LISPRO 100 UNITS/ML SUBCUT SCH ×4 (07:50→20:47)
[2020-04-24 08:00] VITALS: BP 105/71
[2020-04-24] MEDS: SUCRALFATE 1 G/10 ML UDC PO SCH ×4 (09:38→20:43)
[2020-04-24] MEDS: FAMOTIDINE 20MG TABLET PO SCH ×2 (09:38→20:43)
[2020-04-24] MEDS: ZINC SULFATE 220 MG ( 50 ) CAPSULE PO SCH (09:38)
[2020-04-24] MEDS: PREDNISONE 20MG TABLET PO SCH ×2 (09:38→17:24)
[2020-04-24] MEDS: ENOXAPARIN 40MG/0.4ML SYR SUBCUT SCH (09:38)
[2020-04-24] MEDS: ASCORBIC ACID 500 MG TABLET PO SCH ×2 (09:38→20:43)
[2020-04-24 12:00] VITALS: BP 108/70
[2020-04-24 16:03] VITALS: BP 126/77
[2020-04-24 20:00] VITALS: BP 123/77
[2020-04-24] MEDS: GUAIFENESIN 200MG/10ML SUGAR FREE UDC PO PRN (20:46)
[2020-04-24 21:17] LABS: T4 FREE 1.07 ng/dL (0.76-1.46)
[2020-04-25] VITALS (7 sets, daily range): BP systolic 105–140; BP diastolic 74–79
[2020-04-25] MEDS: TRAZODONE HCL 50MG TABLET PO PRN (00:20)
[2020-04-25] MEDS: IPRATROPIUM/ALBUTEROL 0.5-3(2.5)MG/3ML NEB HHN SCH ×3 (01:02→21:40)
[2020-04-25] MEDS: SUCRALFATE 1 G/10 ML UDC PO SCH ×4 (06:14→20:52)
[2020-04-25] MEDS: BLOOD SUGAR DIAGNOSTIC STRIP TEST SCH ×3 (06:53→20:44)
[2020-04-25] MEDS: INSULIN LISPRO 100 UNITS/ML SUBCUT SCH ×3 (07:13→21:03)
[2020-04-25] MEDS: PREDNISONE 20MG TABLET PO SCH ×2 (08:39→16:39)
[2020-04-25] MEDS: CHOLECALCIFEROL (D3) 1000 UNIT TABLET PO SCH (08:39)
[2020-04-25] MEDS: ASCORBIC ACID 500 MG TABLET PO SCH ×2 (08:40→20:52)
[2020-04-25] MEDS: FAMOTIDINE 20MG TABLET PO SCH ×2 (08:40→20:52)
[2020-04-25] MEDS: ENOXAPARIN 40MG/0.4ML SYR SUBCUT SCH (08:40)
[2020-04-25] MEDS: ZINC SULFATE 220 MG ( 50 ) CAPSULE PO SCH (08:40)
[2020-04-25] MEDS: GUAIFENESIN 200MG/10ML SUGAR FREE UDC PO PRN ×2 (09:46→20:59)
[2020-04-25] MEDS ORDERED: DEXTROSE 50% WATER 50ML SYRINGE IV PRN (20:15)
[2020-04-26] MEDS: TRAZODONE HCL 50MG TABLET PO PRN
[2020-04-26] MEDS: IPRATROPIUM/ALBUTEROL 0.5-3(2.5)MG/3ML NEB HHN SCH ×4 (02:54→20:35)
[2020-04-26 05:28] VITALS: BP 132/75
[2020-04-26] MEDS: BLOOD SUGAR DIAGNOSTIC STRIP TEST SCH ×4 (06:43→20:30)
[2020-04-26] MEDS: SUCRALFATE 1 G/10 ML UDC PO SCH ×4 (06:44→20:37)
[2020-04-26] MEDS: PREDNISONE 20MG TABLET PO SCH ×2 (08:09→17:04)
[2020-04-26] MEDS: ZINC SULFATE 220 MG ( 50 ) CAPSULE PO SCH (08:09)
[2020-04-26] MEDS: ENOXAPARIN 40MG/0.4ML SYR SUBCUT SCH (08:10)
[2020-04-26] MEDS: CHOLECALCIFEROL (D3) 1000 UNIT TABLET PO SCH (08:10)
[2020-04-26] MEDS: INSULIN LISPRO 100 UNITS/ML SUBCUT SCH ×4 (08:13→20:40)
[2020-04-26] MEDS: GUAIFENESIN 200MG/10ML SUGAR FREE UDC PO PRN ×3 (08:18→21:53)
[2020-04-26 08:48] VITALS: BP 111/71
[2020-04-26 12:15] VITALS: BP 119/80
[2020-04-26 16:16] VITALS: BP 124/77
[2020-04-26 20:00] VITALS: BP 126/83
[2020-04-26] MEDS: SIMETHICONE 80MG TABLET CHEW PO PRN (21:54)
[2020-04-27] VITALS: BP 127/79
[2020-04-27] MEDS: IPRATROPIUM/ALBUTEROL 0.5-3(2.5)MG/3ML NEB HHN SCH ×2 (01:40→08:51)
[2020-04-27 04:00] VITALS: BP 124/76
[2020-04-27] MEDS: BLOOD SUGAR DIAGNOSTIC STRIP TEST SCH ×2 (06:48→11:56)
[2020-04-27] MEDS: SUCRALFATE 1 G/10 ML UDC PO SCH ×2 (06:49→11:54)
[2020-04-27] MEDS: INSULIN LISPRO 100 UNITS/ML SUBCUT SCH ×2 (07:34→11:56)
[2020-04-27] MEDS: ENOXAPARIN 40MG/0.4ML SYR SUBCUT SCH (07:34)
[2020-04-27] MEDS: PREDNISONE 20MG TABLET PO SCH (07:34)
[2020-04-27] MEDS: GUAIFENESIN 200MG/10ML SUGAR FREE UDC PO PRN (07:34)
[2020-04-27 08:09] VITALS: BP 116/77
[2020-04-27 10:21] VITALS: BP 124/76
[2020-04-27 12:00] VITALS: BP 123/82
== END 2020-04-27 12:55 | disposition home or self-care (01) | DRG 720 ==
LOC: ER 01:13 → MICUSO 03:55 → 7EST 23:32 → 3WST 04-03 19:59 → 6EST 04-20 00:26 → 6WST 04-24 11:12 → UNDODISIN 04-27 12:55
PROVIDERS: ADMIT Internal Medicine; ATTEND Internal Medicine
PROC: 5A09457 Assistance with Respiratory Ventilation, 24-96 Consecutive Hours, Continuous Positive Airway Pressure (ICD-10-PCS; 2020-03-06)
PROC: 5A09557 Assistance with Respiratory Ventilation, Greater than 96 Consecutive Hours, Continuous Positive Airway Pressure (ICD-10-PCS; principal; 2020-03-10)
PROC: 5A09357 Assistance with Respiratory Ventilation, Less than 24 Consecutive Hours, Continuous Positive Airway Pressure (ICD-10-PCS; 2020-03-20)
PROC: 5A09357 Assistance with Respiratory Ventilation, Less than 24 Consecutive Hours, Continuous Positive Airway Pressure (ICD-10-PCS; 2020-03-21)
PROC: 5A09357 Assistance with Respiratory Ventilation, Less than 24 Consecutive Hours, Continuous Positive Airway Pressure (ICD-10-PCS; 2020-03-23)
PROC: 5A09357 Assistance with Respiratory Ventilation, Less than 24 Consecutive Hours, Continuous Positive Airway Pressure (ICD-10-PCS; 2020-04-10)
DX: A41.89 Other specified sepsis (principal); U07.1 COVID-19; J96.01 Acute respiratory failure with hypoxia; J12.82 Pneumonia due to coronavirus disease 2019; R65.20 Severe sepsis without septic shock; I10 Essential (primary) hypertension; E83.51 Hypocalcemia; D63.8 Anemia in other chronic diseases classified elsewhere; E78.1 Pure hyperglyceridemia; E43 Unspecified severe protein-calorie malnutrition; E11.9 Type 2 diabetes mellitus without complications; G47.00 Insomnia, unspecified; Z68.29 Body mass index [BMI] 29.0-29.9, adult
CPT/HCPCS: 36415; 36600; 71045; 71275; 73560; 80048; 80053; 80061; 80305; 80320; 82375; 82550; 82553; 82728; 82746; 82805; 82962; 83036; 83540; 83550; 83605; 83615; 83735; 83880; 84100; 84145; 84439; 84443; 84481; 84484; 85025; 85027; 85379; 86140; 87426; 93005; 93306; 93970; 94640; 94660; 97110; 97116; 97162; 97164; 97166; 97168; 97530; 97535; 99291; C9803; J0456; J0696; J1100; J1650; J1815; J1885; J1940; J2405; J2920; J3490; J7060; J7512; U0003; G0480

== ENCOUNTER 2020-05-10 14:04 | Inpatient (IN) | payer MEDICAID ==
[~2020-05-10] VITALS: Ht 172.7 cm; Wt 89.0 kg
[2020-05-10 15:35] LABS: BASOPHILS % 0.5 % (0.0-2.0); EOSINOPHILS % 0.7 % (0.0-5.0); HEMATOCRIT. 44.6 % (42.0-52.0); HEMOGLOBIN. 14.5 g/dL (14.0-18.0); LYMPHOCYTES % 9.9 % (20.0-50.0); MEAN CORPUSCULAR HEMOGLOBIN 25.7 pg (28.0-32.0); MEAN CORPUSCULAR VOLUME 78.8 fL (80.0-94.0); MONOCYTES % 1.9 % (2.0-8.0); PLATELET 288 x1000/uL (130-400); RED BLOOD CELL COUNT 5.65 mill/uL (4.7-6.1); RED CELL DISTRIBUTION WIDTH 16.4 % (11.6-14.6)
[2020-05-10 15:36] LABS: CHLORIDE 101 mEq/L (98-107)
[2020-05-10 15:40] LABS: D-DIMER < 0.19 mg/L FEU (<0.50); PROTHROMBIN TIME 10.8 sec (9.6-11.0)
[2020-05-10] MEDS ORDERED: LEVOFLOXACIN 750MG PREMIX 150 ML IV ONE (19:00)
[2020-05-10] MEDS ORDERED: HYDROCODONE/ACETAMINOPHEN 5/325MG TABLET PO PRN (20:30)
[2020-05-10] MEDS ORDERED: DOCUSATE SODIUM 100MG CAPSULE PO PRN (20:30)
[2020-05-10] MEDS ORDERED: ONDANSETRON HCL 4MG/2ML INJ IV PRN (20:30)
[2020-05-10] MEDS ORDERED: CLONIDINE 0.1MG TABLET PO PRN (20:30)
[2020-05-10] MEDS ORDERED: ACETAMINOPHEN 325MG TABLET PO PRN ×2 (20:30)
[2020-05-10] MEDS ORDERED: LORAZEPAM 0.5MG TABLET PO PRN (20:30)
[2020-05-10] MEDS ORDERED: IPRATROPIUM/ALBUTEROL 0.5-3(2.5)MG/3ML NEB HHN PRN (20:30)
[2020-05-10 20:43] LABS: CLARITY URINE CLEAR (CLEAR); COLOR URINE YELLOW (YELLOW); KETONES URINE NEGATIVE (NEGATIVE); LEUKOCYTE ESTERASE URINE NEGATIVE (NEGATIVE); NITRITE URINE NEGATIVE (NEGATIVE); OCCULT BLOOD URINE NEGATIVE (NEGATIVE); PH URINE 5.5 (4.5-8.0); PROTEIN URINE NEGATIVE (NEGATIVE); UROBILINOGEN URINE 0.2 E.U./dL (0.2-1.0)
[2020-05-10 20:57] LABS: *AMPHETAMINES SCREEN URINE NEGATIVE (NEGATIVE); *BARBITURATES SCREEN URINE NEGATIVE (NEGATIVE)
[2020-05-10 20:58] LABS: *BENZODIAZEPINES SCREEN URINE NEGATIVE (NEGATIVE); *COCAINE SCREEN URINE NEGATIVE (NEGATIVE); METHADONE URINE SCREEN NEGATIVE (NEGATIVE); OPIATES URINE SCREEN NEGATIVE (NEGATIVE); PHENCYCLIDINE URINE SCREEN NEGATIVE (NEGATIVE)
[2020-05-10 20:59] LABS: CANNABINOID URINE SCREEN NEGATIVE (NEGATIVE)
[2020-05-10] MEDS ORDERED: BENZONATATE 100MG CAPSULE PO ONE (21:15)
[2020-05-11] VITALS (9 sets, daily range): BP systolic 104–132; BP diastolic 57–75
[2020-05-11] MEDS ORDERED: FAMO20TA8 MT (05:46)
[2020-05-11] MEDS ORDERED: LISI10TA26 MT (05:46)
[2020-05-11] MEDS ORDERED: METF-415 PO (05:46)
[2020-05-11] MEDS ORDERED: PRED10TA23 PO (05:46)
[2020-05-11] MEDS ORDERED: PNEUMOCOCCAL 23-VAL P-SAC VAC 0.5 ML IM ONE (08:00)
[2020-05-11] MEDS ORDERED: DEXTROSE 50% WATER 50ML SYRINGE IV PRN ×2 (09:30→13:45)
[2020-05-11] MEDS: BENZONATATE 100MG CAPSULE PO SCH ×3 (09:40→21:55)
[2020-05-11] MEDS ORDERED: INFLUENZA VACCINE 05/PF 0.5 ML VIAL IM ONE (10:00)
[2020-05-11] MEDS ORDERED: BLOOD SUGAR DIAGNOSTIC STRIP TEST SCH (11:50)
[2020-05-11] MEDS ORDERED: INSULIN LISPRO 100 UNITS/ML SUBCUT SCH (12:20)
[2020-05-11] MEDS: DEXAMETHASONE 10 MG/ML VIAL IV SCH (14:14)
[2020-05-11] MEDS: ENOXAPARIN 40MG/0.4ML SYR SUBCUT SCH (14:14)
[2020-05-11] MEDS ORDERED: GUAIFENESIN/CODEINE 200-20MG/10ML UDC PO PRN (15:00)
[2020-05-11] MEDS: INSULIN LISPRO 100 UNITS/ML SUBCUT SCH ×2 (16:21→21:55)
[2020-05-11] MEDS: BLOOD SUGAR DIAGNOSTIC STRIP TEST SCH ×2 (16:21→20:38)
[2020-05-12] VITALS (10 sets, daily range): BP systolic 90–137; BP diastolic 57–79
[2020-05-12] MEDS: BENZONATATE 100MG CAPSULE PO SCH ×2 (05:56→13:10)
[2020-05-12] MEDS: BLOOD SUGAR DIAGNOSTIC STRIP TEST SCH ×2 (05:57→11:41)
[2020-05-12] MEDS: INSULIN LISPRO 100 UNITS/ML SUBCUT SCH ×2 (06:20→11:41)
[2020-05-12] MEDS: DEXAMETHASONE 10 MG/ML VIAL IV SCH (08:34)
[2020-05-12] MEDS: ENOXAPARIN 40MG/0.4ML SYR SUBCUT SCH (13:10)
[2020-05-12] MEDS ORDERED: FAMO20TA8 MT (13:35)
[2020-05-12] MEDS ORDERED: BENZ-16 MT (13:35)
[2020-05-12] MEDS ORDERED: DEXA6TAB MT (13:35)
== END 2020-05-12 17:25 | disposition home or self-care (01) | DRG 142 ==
LOC: ER 14:04 → 3WST 19:24 → ENRESERV 22:58
PROVIDERS: ADMIT Internal Medicine; ATTEND Internal Medicine
DX: J84.10 Pulmonary fibrosis, unspecified (principal); J18.9 Pneumonia, unspecified organism; J96.20 Acute and chronic respiratory failure, unspecified whether with hypoxia or hypercapnia; E11.9 Type 2 diabetes mellitus without complications; I10 Essential (primary) hypertension; Z79.84 Long term (current) use of oral hypoglycemic drugs; D72.829 Elevated white blood cell count, unspecified; B94.8 Sequelae of other specified infectious and parasitic diseases
CPT/HCPCS: 36415; 71045; 80053; 80305; 81003; 82962; 83036; 83880; 84145; 84484; 85025; 85379; 93005; 99285; A6261; J1100; J1650; J1815; J1956